=== PATIENT | male | born 1980 | race Caucasian/White ===

== ENCOUNTER 2019-12-27 16:41 | Inpatient (IN) ==
[2019-12-27] MEDS ORDERED: ONDANSETRON INJ 2 MG/ML 2 ML VIAL IV STA (17:32)
[2019-12-27] MEDS ORDERED: MoRPHine SULFATE 4 MG/ML 1 ML CARP\\VIAL IV PRN (17:32)
[2019-12-27 17:41] LABS: Basophils # (auto) 0.03 K/uL (0-0.2); Basophils % (auto) 0.3 %; Eosinophils # (auto) 0.01 K/uL (0-0.5); Eosinophils % (auto) 0.1 %; Hematocrit (blood only) 43.6 % (42-52); Hemoglobin 15.7 g/dL (14.0-18.0); Immature Granulocytes # (auto) 0.03 K/uL (0.00-0.02); Immature Granulocytes % (auto) 0.3 %; Lymphocytes # (auto) 1.74 K/uL (1.2-3.4); Mean Corpuscular Hemoglobin 31.5 pg (25-34); Mean Corpuscular Volume 87.4 fL (80-100); Mean Platelet Volume 11.1 fL (7.4-10.4); Monocytes # (auto) 0.98 K/uL (0.11-0.59); Monocytes % (auto) 9.6 %; Neutrophils # (auto) 7.44 K/uL (1.4-6.5); Neutrophils % (auto) 72.7 %; Platelet Count 268 K/uL (130-400); RDW Coefficient of Variation 13.3 % (11.5-14.5); RDW Standard Deviation 42.6 fL (36.4-46.3); Red Blood Count 4.99 M/uL (4.7-6.1); White Blood Count 10.23 K/uL (4.8-10.8)
[2019-12-27] MEDS ORDERED: SODIUM CHLORIDE 0.9% 1000ML 1,000 ML IV SCH (17:45)
[2019-12-27 17:56] LABS: Alanine Aminotransferase 106 U/L (12-78); Albumin Level 3.9 gm/dl (3.4-5.0); Aspartate Aminotransferase 35 U/L (15-37); BUN Creatinine Ratio 12.1 (10-20); Blood Urea Nitrogen 9 mg/dl (7-18); Calcium 8.9 mg/dl (8.5-10.1); Carbon Dioxide 26 mmol/L (21-32); Chloride 106 mmol/L (98-107); Creatinine Clr Calc Pharmacy 164.5 ml/min; Est GFR (African American) 135.8; Est GFR (Non-African American) 117.2; Glucose 85 mg/dl (70-99); Lipase 1116 U/L (73-393); Sodium 138 mmol/L (136-145)
[2019-12-27 18:01] LABS: Albumin Globulin Ratio 1.1 (0.9-2); Alkaline Phosphatase 72 U/L (45-117); Bilirubin,Total 0.5 mg/dl (0.2-1); Globulin 3.6 gm/dl (2.5-4.0); Total Protein 7.5 gm/dl (6.4-8.2); Troponin I < 0.015 ng/ml (0-0.045)
--- NOTE | 2019-12-27 18:56 | Emergency Department Note ---
Entered by Romel Zaragoza acting as a scribe for Jaime Casillas MD History of Present Illness General Chief complaint: Abdominal Pain Stated complaint: PANCREATITIS Time Seen by Provider: 12/27/19 17:21 Source: patient History of Present Illness Onset (ago): week(s) (several) Location: abdomen Pain Consistency: + other (worsening) Maximum Pain Intensity: 6 Current Pain Intensity: 6 Quality: + other (abdominal pain) Exacerbated By: + eating Associated symptoms: + nausea/vomiting (-vomiting); no fever/chills The patient is a 39 year old male, with past medical history of pancreatitis, who presents to the Emergency Room with complaints of worsening lower abdominal pain since being discharged from [facility] for pancreatitis on 12/10/19. He rates the pain as a 6/10, and the patient reports the pain is worsened with eating. The patient just started weaning his prednisone down to a smaller dose 3 days ago, this is when his pain really began to increase. He states that he will be completely off prednisone in two days. The patient reports nausea, but he denies vomiting. The patient denies drinking or smoking, but he notes he vapes. He states that he was told that he grew out of his asthma. The patient denies a fever/chills. He states the pain was at its worst last night as he states he could not sleep or lay on his sides due to the pain. The patient reports that he did not eat or drink anything today. He states the drive to [facility] made the pain worse. The patient reports that his lipase level was at 249 when last checked at his PCPs office two weeks ago. The patient denies prior abdominal surgeries. The patient states he came to [facility] this time because of a bad experience with [facility] last time. Home Medications Home Medications Medication Instructions Recorded Confirmed Type prednisone 0 mg PO .DAILY/UD 12/27/19 12/27/19 History Allergies Allergy/AdvReac Type Severity Reaction Status Date / Time Penicillins Allergy Unknown Unverified 12/27/19 18:17 Past Med/Surg History Medical History Pancreatitis Family History Mother Hypertension Social History Preferred Language: Martiniquais Communication Ability: Effective Beliefs That Will Affect Care: None Current Living Situation: Other Current Living Situation Comment: FRIEND Other Information That Helps Us Care for You: No Feels Safe at Home: Yes Safety Concerns: Feels Safe At This Time Smoking Status: Current every day smoker Tobacco Type: e-cigarettes ; Hx Alcohol Use: Yes Alcohol Intake Frequency: Rarely Hx Substance Use: No Review of Systems See HPI for pertinent positives & negatives. and A total of 10 systems reviewed and were otherwise negative Physical Exam Vital Signs Vital Signs - 24 hr 12/27/19 17:00 12/27/19 17:34 12/27/19 17:40 Temperature 36.9 C Temperature Source Oral Pulse Rate 89 78 72 Pulse Rate [Apical] Pulse Rate from SpO2 Sensor 82 73 Respiratory Rate 18 23 21 Respiratory Effort / Characteristics Non-Labored Respiratory Depth Normal Blood Pressure 148/99 H Blood Pressure [Left Arm] Blood Pressure Mean 115 Blood Pressure Mean [Left Arm] Pulse Oximetry 99 96 95 Oxygen Delivery Method Room Air Room Air Room Air Sepsis Recent Fever Within 48 Hours No Sepsis Action Taken by Nursing No Action Required 12/27/19 17:50 12/27/19 18:00 12/27/19 18:10 Temperature Temperature Source Pulse Rate 75 69 70 Pulse Rate [Apical] Pulse Rate from SpO2 Sensor 74 69 69 Respiratory Rate 17 15 17 Respiratory Effort / Characteristics Respiratory Depth Blood Pressure Blood Pressure [Left Arm] Blood Pressure Mean Blood Pressure Mean [Left Arm] Pulse Oximetry 96 96 96 Oxygen Delivery Method Room Air Room Air Room Air Sepsis Recent Fever Within 48 Hours Sepsis Action Taken by Nursing 12/27/19 18:20 12/27/19 18:32 12/27/19 18:37 Temperature Temperature Source Pulse Rate 79 71 80 Pulse Rate [Apical] 86 Pulse Rate from SpO2 Sensor 77 69 81 Respiratory Rate 14 15 18 Respiratory Effort / Characteristics Respiratory Depth Blood Pressure 129/102 H Blood Pressure [Left Arm] 129/100 Blood Pressure Mean 107 Blood Pressure Mean [Left Arm] 109 Pulse Oximetry 99 98 98 Oxygen Delivery Method Room Air Room Air Room Air Sepsis Recent Fever Within 48 Hours Sepsis Action Taken by Nursing GENERAL: Patient is in no acute distress. HEENT: No acute trauma, normocephalic atraumatic, mucous membranes moist, no nasal congestion, no scleral icterus. NECK: No stridor, no adenopathy, no meningismus, trachea is midline. LUNGS: Scattered wheezes. No crackles. Equal breath sounds. No respiratory dis tress. HEART: Without murmurs gallops or rubs, regular rate and rhythm. ABDOMEN: Soft, moderately tender in the epigastric area, bowel sounds positive, no hernias, no peritonitis. EXTREMITIES: No cyanosis or edema, full range of motion of all the joints without pain or difficulty, no signs for acute trauma. NEUROLOGIC: Oriented x 3, no acute motor or sensory deficits, no focal weakness. SKIN: No rash, no jaundice, no diaphoresis. Course Course 1727: Past medical records reviewed. The patient was evaluated in room C3. A complete history and physical exam was performed. 1808: I reevaluated and updated the patient on his case. The patient is willing to stay in the hospital. 1818: I reviewed the patient's case with Gerda Sheehan. Dr. Jakub Castillo will evaluate the patient for further management. Consultations Consultation #1: I reviewed the patient's case with Gerda Sheehan. Dr. Mayur Castillo will evaluate the patient for further management. Time: 18:19 Administered Medications Lactated Ringer's (Lr) 1,000 mls @ 150 mls/hr IV .Q6H40M [facility] Stop: 01/26/20 19:33 Last Admin: 12/27/19 19:46 Dose: 150 mls/hr Documented by: [id number] Morphine Sulfate (Morphine Sulfate) 4 mg IV Q4H PRN PRN Reason: Pain Stop: 01/10/20 19:33 Last Admin: 12/27/19 19:53 Dose: 4 mg Documented by: [id number] Discontinued Medications Sodium Chloride (Nss 1000ml) 1,000 mls @ 999 mls/hr IV .Q1H1M [facility] Stop: 12/27/19 18:45 Last Infusion: 12/27/19 18:47 Dose: 0 mls/hr Documented by: [id number] Admin: 12/27/19 17:41 Dose: 999 mls/hr Documented by: [id number] Morphine Sulfate (Morphine Sulfate) 4 mg IV Q15M PRN PRN Reason: Pain Stop: 01/10/20 17:31 Last Admin: 12/27/19 17:41 Dose: 4 mg Documented by: [id number] Ondansetron HCl (Zofran) 4 mg IV NOW STA Stop: 12/27/19 17:33 Last Admin: 12/27/19 17:41 Dose: 4 mg Documented by: [id number] Medical Decision Making Differential Diagnosis Differential diagnoses include pancreatitis, dehydration, electrolyte imbalance, anemia, renal failure, myocardial infarction, angina, amongst others that were considered. Medical Records Attestation: I reviewed the patient's medical records. The patient was admitted to [facility] on 11/25/19-11/27/19 for pa ncreatitis. The patient was admitted again from 12/07-12/10 for pancreatitis. The patient completed an MRI of abdomen without contrast on 12/08/19. It showed pancreatitis but no evidence of pancreatic mass, gall stones, or biliary obstruction. There was a mention of possible pancreatic duct stricture. 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 Home Medications Current Medication List: was personally reviewed by me Laboratory Data Attestation: I reviewed the patient's lab results. Result diagrams: 12/27/19 17:23 12/27/19 17:23 Lab Results 12/27/19 12/27/19 Range/Units 17:23 17:23 WBC 10.23 (4.8-10.8) K/uL RBC 4.99 (4.7-6.1) M/uL Hgb 15.7 (14.0-18.0) g/dL Hct 43.6 (42-52) % MCV 87.4 (80-100) fL MCH 31.5 (25-34) pg MCHC 36.0 (32-36) g/dL RDW Std Deviation 42.6 (36.4-46.3) fL RDW Coeff of Brayan 13.3 (11.5-14.5) % Plt Count 268 (130-400) K/uL MPV 11.1 H (7.4-10.4) fL Immature Gran % (Auto) 0.3 % Neut % (Auto) 72.7 % Lymph % (Auto) 17.0 % Wilkinson % (Auto) 9.6 % Eos % (Auto) 0.1 % Baso % (Auto) 0.3 % Immature Gran # (Auto) 0.03 H (0.00-0.02) K/uL Neut # (Auto) 7.44 H (1.4-6.5) K/uL Lymph # (Auto) 1.74 (1.2-3.4) K/uL Wilkinson # (Auto) 0.98 H (0.11-0.59) K/uL Eos # (Auto) 0.01 (0-0.5) K/uL Baso # (Auto) 0.03 (0-0.2) K/uL Sodium 138 (136-145) mmol/L Potassium 4.0 (3.5-5.1) mmol/L Chloride 106 (98-107) mmol/L Carbon Dioxide 26 (21-32) mmol/L Anion Gap 6.0 (3-11) BUN 9 (7-18) mg/dl Creatinine 0.75 (0.6-1.4) mg/dl Est Cr Clr Drug Dosing 164.5 ml/min Est GFR ( Amer) 135.8 Est GFR (Non-Af Amer) 117.2 BUN/Creatinine Ratio 12.1 (10-20) Glucose 85 (70-99) mg/dl Calcium 8.9 (8.5-10.1) mg/dl Total Bilirubin 0.5 (0.2-1) mg/dl AST 35 (15-37) U/L ALT 106 H (12-78) U/L Alkaline Phosphatase 72 (45-117) U/L Troponin I < 0.015 (0-0.045) ng/ml Total Protein 7.5 (6.4-8.2) gm/dl Albumin 3.9 (3.4-5.0) gm/dl Globulin 3.6 (2.5-4.0) gm/dl Albumin/Globulin Ratio 1.1 (0.9-2) Lipase 1116 H (73-393) U/L ECG Data Attestation: I personally reviewed and interpreted this ECG as follows: Indication: + abdominal pain Rate (beats per minute): 66 Rhythm: + normal sinus ECG Intervals/blocks: + Normal QT-c (404) ECG ST segments: no ST elevation ECG Findings: no PVCs Blood Pressure Blood Pressure Findings: Elevated blood pressure Blood Pressure Disposition: further management by hospitalist [facility] Narrative There is no leukocytosis or concerning anemia. No significant electrolyte abnormality or kidney failure. No worrisome liver enzyme elevation. Lipase was high at over one thousand, consistent with pancreatitis. EKG shows a normal sinus rhythm, no acute ischemia. Cardiac enzyme testing x1 is not consistent with acute cardiac injury. The patient received IV morphine for pain, IV Zofran for nausea, he was given IV saline. The patient is tender in the epigastrium and appears to have pancreatitis by our laboratory testing. He has had similar issues in the very recent past. He has been diagnosed with autoimmune pancreatitis. Given the elevation to the lipase, given his worsening symptoms, a hospital stay was felt warranted. I did speak to the patient about his findings, I spoke with case management. The on-call hospitalist was consulted. Continuous Cardiac Monitoring: An order was placed for continuous cardiac monitoring. The monitor shows a rate of 66 with normal sinus rhythm. Impression & Plan Acute pancreatitis, Abdominal pain, acute, epigastric, Acute dehydration Discharge Plan Visit Data *Final* Discharge Date/Time: 12/27/19 19:17 Chief Complaint: Abdominal Pain Stated Complaint: PANCREATITIS ED Provider: Jaime Casillas Discharge Problem: Acute pancreatitis, Abdominal pain, acute, epigastric, Acute dehydration Patient Disposition: Admitted As Inpatient Discharge Instructions Interventions: ED Discharge Assessment Last Done: 12/27/19 19:17 Discharge Problem: Acute pancreatitis Qualifiers: Pancreatitis type: unspecified pancreatitis type Acute pancreatitis complication: unspecified Qualified Code(s): K85.90 - Acute pancreatitis without necrosis or infection, unspecified The rickyibcici's documentation has been prepared under my direction and personally reviewed by me in its entirety. I confirm that the note above accurately reflects all work, treatment, procedures, and medical decision making performed by me.
--- NOTE | 2019-12-27 19:29 | History & Physical Report ---
Date of Service December 27, 2019 Assessment & Plan (1) Acute pancreatitis: -Admit to [facility] -Patient presenting from home with reports of abdominal pain, 2 recent admissions to [facility] for pancreatitis (11/25 - 11/27 and 12/06 - 12/10) -No history of heavy alcohol use, prior work-up negative for ch oledocholithiasis, triglycerides WNL; was felt to be autoimmune pancreatitis and patient was started on steroids with improvement in symptoms however ROBBI and IgG4 subclasses all WNL and patient was instructed to start tapering steroids on 12/23 -EGD and EUS on 12/09 showed esophageal polyp (pathology showing benign squamous mucosa) and signs of fatty liver -In the ED, lipase found to be 1116 (249 on 12/17) -Check RUQ ultrasound -Mild ALT elevation however other LFTs WNL -Continue supportive care with IVF, pain and nausea control -Hold steroids for now -Clear liquid diet -GI consult (patient requesting [facility] for second opinion) (2) DVT prophylaxis: -SCDs History of Present Illness Chief Complaint: Abdominal pain Primary Care Provider: Kiko Celaya MD 39-year-old male who presents the ED for evaluation of abdominal pain. Patient has had 2 admissions to [facility] for pancreatitis. First admission 11/25 through 11/27 and second admission 12/06 through 12/10. Initially pancreatitis was felt to be s econdary to possible passed gallstone. 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 Patient was started on steroids during his second admission and had significant improvement in his symptoms. He underwent EGD and EUS on 12/09. He was found to have esophageal polyp and signs of fatty liver. He followed up with GI on 12/23 as an outpatient. ROBBI and IgG4 subclasses were all found to be within normal limits and therefore patient was instructed to taper his steroids. Patient reports that about 2 days ago his pain has started to worsen. He has been tolerating clear liquids however when he advances his diet, pain is worsened. He has had some nausea but denies any vomiting. He has had a few episodes of diarrhea. No black or pink rectum or dark tarry stools. He denies chest pain or shortness of breath. No lightheadedness, dizziness, diaphoresis, syncopal events. No fevers or chills. He denies any urinary symptoms. In the ED, lipase is found to be 1116. Patient was given IVF, IV morphine, and IV Zofran. Allergies Allergy/AdvReac Type Severity Reaction Status Date / Time Penicillins Allergy Unknown Unverified 12/27/19 18:17 Home Medications Home Medications Medication Instructions Recorded Confirmed Type prednisone 0 mg PO .DAILY/UD 12/27/19 12/27/19 History Past Med/Surg History Medical History Pancreatitis Family History Mother Hypertension Social History Preferred Language: Vietnamese Communication Ability: Effective [employer] Required: No Beliefs That Will Affect Care: None Current Living Situation: Significant Other Current Living Situation Comment: FRIEND Other Information That Helps Us Care for You: No Feels Safe at Home: Yes Safety Concerns: Feels Safe At This Time Smoking Status: Former smoker Tobacco Type: e-cigarettes ; Do You Dip or Chew Tobacco: No ; Second Hand Exposure: No ; Hx Alcohol Use: Yes Alcohol Intake Frequency: Rarely Hx Substance Use: Yes substance use type: prescription drug Last Used Substance: Days (ago) Last Used Substance Other:: 12/26/2019 Review of Systems Review of Systems: ROS per HPI, all other systems reviewed and negative Physical Exam Physical Exam: Please refer to Dr. Carver's addendum for physical exam. Results & Data Vital Signs (Past 12 Hours) Vital Signs Temp Pulse Pulse Resp BP BP Pulse Ox 12/27/19 18:50 68 14 98 12/27/19 18:40 76 26 H 98 12/27/19 18:37 80 86 18 129/102 H 129/100 98 12/27/19 18:32 71 15 98 12/27/19 18:20 79 14 99 12/27/19 18:10 70 17 96 12/27/19 18:00 69 15 96 12/27/19 17:50 75 17 96 12/27/19 17:40 72 21 95 12/27/19 17:34 78 23 96 12/27/19 17:00 36.9 C 89 18 148/99 H 99 Laboratory Results Short CBC 12/27/19 Range/Units 17:23 WBC 10.23 (4.8-10.8) K/uL Hgb 15.7 (14.0-18.0) g/dL Hct 43.6 (42-52) % Plt Count 268 (130-400) K/uL BMP 12/27/19 17:23 Sodium 138 Potassium 4.0 Chloride 106 Carbon Dioxide 26 BUN 9 Creatinine 0.75 Glucose 85 Calcium 8.9 Cardiac Enzymes 12/27/19 Range/Units 17:23 Troponin I < 0.015 (0-0.045) ng/ml Liver Function 12/27/19 Range/Units 17:23 Total Bilirubin 0.5 (0.2-1) mg/dl AST 35 (15-37) U/L ALT 106 H (12-78) U/L Alkaline Phosphatase 72 (45-117) U/L Albumin 3.9 (3.4-5.0) gm/dl Code Status & VTE Plan VTE Prophylaxis Plan VTE Prophylaxis will be ordered: Yes Supervising Physician Co-Signing Physician Notes I performed a history and physical examination of the patient on 12/27/2019. I have discussed the patient's management with the advanced practitioner. Please refer to the [employer]'s note for the documented findings and plan of care. This is a 39-year-old male who has presented to the ER with ongoing epigastric pain. He has been admitted recently to the [facility] with acute pancreatitis with cause unknown so far. Right upper quadrant ultrasound was unremarkable and he drinks alcohol only occasionally. His triglyceride levels were also within normal limits. He was thought to have autoimmune pancreatitis and was discharged on prednisone taper. He is down to 10 mg which she was instructed to take for 2 more days. He came to the ER because his pain, mainly located in the epigastrium, never went away and is worse now. He denied any diarrhea or fever. Review of systems was otherwise negative. On exam: General: Alert and oriented x 3. NAD HENT: Normocephalic, atraumatic, pupils round and equally reactive to light, oral mucosa: moist Neck: Supple, no lymph nodes palpated, no thyromegaly CVS: Normal S1, S2. No murmur, rub or gallop. PMI non displaced. Peripheral pulses normal. Resp: Normal percussion. Normal breath sounds bilaterally. No wheezing or rales heard Abdomen: Soft, tender in the epigastrium, no hepatosplenomegaly. Bowel sounds positive Extremities: No pitting edema Neuro: Power 5/5 throughout, grossly normal sensations, DTR's normal Psychiatry: Normal mood, normal thought process He is noted to have elevated lipase and slightly elevated liver enzymes. He appears to have another or ongoing episode of pancreatitis. We will repeat a right upper quadrant ultrasound and consult gastroenterology for further recommendations. He is tolerating clear liquids and we will continue them. Provide IV fluids. (1) Acute pancreatitis Acute pancreatitis complication: unspecified Pancreatitis type: unspecified pancreatitis type Qualified Code(s): K85.90 - Acute pancreatitis without necrosis or infection, unspecified
[2019-12-27] MEDS ORDERED: ACETAMINOPHEN 325 MG TAB PO PRN (19:34)
[2019-12-27] MEDS: LACTATED RINGER'S 1,000 ML IV SCH (19:46)
[2019-12-27] MEDS: MoRPHine SULFATE 4 MG/ML 1 ML CARP\\VIAL IV PRN (19:53)
--- NOTE | 2019-12-27 21:28 | Ultrasound Report ---
US liver HISTORY: 39 years-old Male pancreatitis acute right upper quadrant abdominal pain COMPARISON: None TECHNIQUE: Multiple real-time sonographic images of the abdominal right upper quadrant were obtained assessing grayscale appearance and color flow FINDINGS: Pancreas is mostly obscured by bowel gas. The visualized portions of the pancreas appear unremarkable . No pancreatic ductal dilation. Mildly increased echogenicity of the liver. No focal hepatic mass or intrahepatic biliary ductal dilation. Trace bladder sludge. No cholelithiasis, bladder wall thickeni ng or pericholecystic fluid. Sonographic Huggins sign reported as negative. Common bile duct is normal , 3 mm. Imaged right kidney is unremarkable without hydronephrosis. IMPRESSION: 1. Pancreas is mostly obscured by bowel gas. The visualized portions appear unremarkable. 2. Trace, bladder sludge without cholelithiasis or sonographic evidence of acute cholecystitis. 3. No biliary ductal dilation. 4. Mildly increased echogenicity of the liver may reflect hepatic steatosis. ACT 112: Negative or not required by law. The above report was generated using voice recognition software. It may contain grammatical, syntax o r spelling errors. Electronically signed by: Chung Morales M.D. 12/27/2019 9:27 PM
[2019-12-28] MEDS: MoRPHine SULFATE 4 MG/ML 1 ML CARP\\VIAL IV PRN ×5 (00:06→20:43)
[2019-12-28] MEDS: LACTATED RINGER'S 1,000 ML IV SCH ×4 (01:52→21:42)
[2019-12-28 06:30] LABS: Hematocrit (blood only) 40.5 % (42-52); Hemoglobin 13.8 g/dL (14.0-18.0); Mean Corpuscular Hemoglobin 30.8 pg (25-34); Mean Corpuscular Hgb Conc 34.1 g/dL (32-36); Mean Corpuscular Volume 90.4 fL (80-100); Mean Platelet Volume 11.3 fL (7.4-10.4); Platelet Count 208 K/uL (130-400); RDW Coefficient of Variation 13.5 % (11.5-14.5); RDW Standard Deviation 44.6 fL (36.4-46.3); Red Blood Count 4.48 M/uL (4.7-6.1); White Blood Count 9.46 K/uL (4.8-10.8)
[2019-12-28 07:12] LABS: Albumin Level 3.1 gm/dl (3.4-5.0); BUN Creatinine Ratio 10.6 (10-20); Bilirubin,Total 0.6 mg/dl (0.2-1); Calcium 8.6 mg/dl (8.5-10.1); Creatinine Clr Calc Pharmacy 162.4 ml/min; Est GFR (African American) 135.1; Est GFR (Non-African American) 116.6; Potassium 3.8 mmol/L (3.5-5.1); Total Protein 6.1 gm/dl (6.4-8.2)
[2019-12-28 09:07] LABS: Chol HDL Ratio 4; Cholesterol 157 mg/dl (0-200); HDL Cholesterol 44 mg/dl; LDL Cholesterol Calculated 92 mg/dl; Triglycerides 103 mg/dl (0-150); VLDL Cholesterol 21 mg/dl
--- NOTE | 2019-12-28 10:22 | Gastrointestinal Consultation ---
Date of Consultation December 28, 2019 Assessment & Plan (1) Pancreatitis: Agree with Dr. Bojorquez of [facility]. Would ensure completion of the steroid taper. I discussed with patient that at present, I do not have much to add to the overall plan of care, but would recommend keeping patient NPO until MRCP can be performed due to worsening symptoms. If no further findings from MRCP, would advise outpatient tertiary work-up as patient has already undergone an EUS locally. Continue to follow LFTs. Supportive care per primary team. Present on Admission?: Yes Supervising Physician Co-Signing Physician Notes Agree with REINALDO Martinez as above Abd: Soft, tender mid-epigastric area, ND, +BS Check MRCP now Consider Surgery consult, as the most common cause of recurrent pancreatitis is gallstones/sludge Continue supportive care. History of Present Illness Reason for Consultation: 2nd opinion pancreatitis Attending Physician: Sandip Montaño MD History of Present Illness Patient is a 39 yo male admitted to [facility] after multiple admissions to [facility] for pancreatitis. He has no history of pancreatitis prior to November 2019. He reports he was admitted to [facility] and his work-up was unremarkable. He denies alcohol use, triglycerides were within normal limits, & gallbladder work-up was unremarkable at that time per review of Epic records. He reports that he was discharged, but due to persistent symptoms, he returned. He was evaluated by [facility] at some point during these hospitalizations. He underwent an EGD/EUS. 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 While he had a negative ROBBI & IgG4 subclasses, he was placed on a steroid taper and advised to have an MRCP in 3 months. He notes this improved his symptoms at first. He notes that when he began advancing his diet, his symptoms worsened. He returned to [facility] for another opinion. He reports epigastric pain at present. He is on a clear liquid diet currently. AST is 25. ALT 79. US imaging shows gallbladder sludge but no evidence of choledocholithiasis or cholecystitis. Pancreas could not be visualized. He has minimal elevation of his lipase at 1116. Allergies Allergy/AdvReac Type Severity Reaction Status Date / Time Penicillins Allergy Unknown Unverified 12/27/19 18:17 Home Medications Home Medications Medication Instructions Recorded Confirmed Type prednisone 0 mg PO .DAILY/UD 12/27/19 12/27/19 History Patient History Medical History Pancreatitis Family History Mother Hypertension Social History Preferred Language: Lao Communication Ability: Effective Aviation Survival Technician Required: No Beliefs That Will Affect Care: None Current Living Situation: Significant Other Current Living Situation Comment: FRIEND Other Information That Helps Us Care for You: No Feels Safe at Home: Yes Safety Concerns: Feels Safe At This Time Smoking Status: Former smoker Tobacco Type: e-cigarettes ; Do You Dip or Chew Tobacco: No ; Second Hand Exposure: No ; Hx Alcohol Use: Yes Alcohol Intake Frequency: Rarely Hx Substance Use: Yes substance use type: prescription drug Last Used Substance: Days (ago) Last Used Substance Other:: 12/26/2019 Review of Systems Constitutional: no fever and no chills Eyes: no acute issues Ear, Nose, Mouth, Throat: no acute issues Respiratory: no cough and no dyspnea Cardiovascular: no chest pain Gastrointestinal: + abdominal pain (epigastric); no bloating, no heartburn, no nausea, no vomiting and no change in bowel habits Musculoskeletal: no acute complaints Integumentary: no rash Neurologic: no dizziness Psychiatric: no acute issues Hematologic / Lymphatic: no easy bleeding Physical Exam Constitutional: WD/WN, vitals as above Eyes: PERRL, conjunctivae normal, anicteric sclerae ENMT: external ear and nose normal, oropharynx normal Neck: normal visual inspection Respiratory: normal respiratory effort, lungs clear to auscultation Cardiovascular: RRR, no murmur, no edema Gastrointestinal (Abdomen): normal bowel sounds, soft, nontender, no hepatosplenomegaly Skin: no rashes, warm and dry Psychiatric: A+Ox3, euthymic affect Results & Data ([facility]) Vital Signs (Past 12 Hours) Vital Signs Temp Pulse Resp BP Pulse Ox 12/28/19 07:20 36.6 C 76 16 133/92 98 12/28/19 00:01 36.7 C 65 15 142/90 H 96 PG Care Time/CCT Total # of Minutes Spent Total Time Spent with Patient: Total time spent is greater than 50% in coordination of care (as documented) at patient's floor/unit and/or counseling patient: Coding Level of Care Code 83997 Inpt Consult Level 4 Diagnoses Pancreatitis K85.00 Acute pancreatitis complication: no infection or necrosis Chronicity: acute Pancreatitis type: idiopathic (1) Pancreatitis Acute pancreatitis complication: no infection or necrosis Chronicity: acute Pancreatitis type: idiopathic Qualified Code(s): K85.00 - Idiopathic acute pancreatitis without necrosis or infection
--- NOTE | 2019-12-28 11:17 | Electrocardiogram Report ---
Test Reason : Blood Pressure : / mmHG Vent. Rate : 066 BPM Atrial Rate : 066 BPM P-R Int : 148 ms QRS Dur : 096 ms QT Int : 386 ms P-R-T Axes : 034 001 011 degrees QTc Int : 404 ms Normal sinus rhythm Normal ECG No previous ECGs available Confirmed by Mil Padron ([id number]) on 12/28/2019 11:16:39 AM Referred By: REFERRED SELF Confirmed By:Mil Padron
--- NOTE | 2019-12-28 14:35 | Hospitalist Progress Note ---
Date of Service December 28, 2019 Assessment & Plan (1) Acute pancreatitis: Note from the admitting physician: -Patient presenting from home with reports of abdominal pain, 2 recent admissions to [facility] for pancreatitis (11/25 - 11/27 and 12/06 - 12/10) -No history of heavy alcohol use, prior work-up negative for choledocholithiasis, triglycerides WNL; was felt to be autoimmune pancreatitis and patient was started on steroids with improvement in symptoms however ROBBI and IgG4 subclasses all WNL and patient was instructed to start tapering steroids on 12/23 -EGD and EUS on 12/09 showed esophageal polyp (pathology showing benign squamous mucosa) and signs of fatty liver -In the ED, lipase found to be 1116 (249 on 12/17) -Check RUQ ultrasound -Mild ALT elevation however other LFTs WNL -Continue supportive care with IVF, pain and nausea control -Hold steroids for now -Clear liquid diet -GI consult (patient requesting [facility] for second opinion) 12/28/2019 Symptomatically a little better and continues to have abdominal pain Appreciate GI input and recommendation Lipid profile and triglyceride remain unremarkable Has had outpatient work-up including EUS Check MRCP We will start clear liquid and advance diet as tolerated from tomorrow if symptomatically better Lipase is coming down (2) DVT prophylaxis: -SCDs -Increase ambulation Discussed with the patient in detail Admission and Anticipated Discharge Date Admission Date: December 27, 2019 Subjective 12/28/2019 The patient was seen and examined in medical floor He still complains of pain in the epigastrium that goes back His nausea and vomiting are better Remains n.p.o. Review of Systems Review of Systems: All systems reviewed and are unremarkable except as noted below Gastrointestinal: + abdominal pain, + bloating, + nausea and + vomiting Physical Exam Physical Exam: Lying in bed very anxious with minimal distress due to abdominal pain Constitutional: well developed, well nourished, + acute distress (Minimal abdominal pain) and + obese Eyes: PERRL, conjunctivae normal, anicteric sclerae ENMT: external ear and nose normal, oropharynx normal Neck: normal visual inspection Respiratory: normal respiratory effort, lungs clear to auscultation Cardiovascular: RRR, no murmur, no edema Gastrointestinal (Abdomen): Inspection/Auscultation: abdomen normal to inspection and normal bowel sounds Percussion/Palpation: + abdomen tender (Mildly tender in the epigastrium) and abdomen soft; no guarding and abdomen not rigid Musculoskeletal: No acute arthritis involving any joint Skin: no rashes, warm and dry Psychiatric: A+Ox3, euthymic affect Results & Data ([facility]) Vital Signs (Past 12 Hours) Vital Signs Temp Pulse Resp BP Pulse Ox 12/28/19 07:20 36.6 C 76 16 133/92 98 Laboratory Results Short CBC 12/27/19 12/28/19 Range/Units 17:23 06:01 WBC 10.23 9.46 (4.8-10.8) K/uL Hgb 15.7 13.8 L (14.0-18.0) g/dL Hct 43.6 40.5 L (42-52) % Plt Count 268 208 (130-400) K/uL BMP 12/27/19 12/28/19 17:23 06:01 Sodium 138 140 Potassium 4.0 3.8 Chloride 106 107 Carbon Dioxide 26 29 BUN 9 8 Creatinine 0.75 0.76 Glucose 85 93 Calcium 8.9 8.6 Cardiac Enzymes 12/27/19 Range/Units 17:23 Troponin I < 0.015 (0-0.045) ng/ml Liver Function 12/27/19 12/28/19 Range/Units 17:23 06:01 Total Bilirubin 0.5 0.6 (0.2-1) mg/dl AST 35 25 (15-37) U/L ALT 106 H 79 H (12-78) U/L Alkaline Phosphatase 72 57 (45-117) U/L Albumin 3.9 3.1 L (3.4-5.0) gm/dl Medications Administered Current Inpatient Medications Acetaminophen (Tylenol) 650 mg PO Q4H PRN PRN Reason: pain/fever Stop: 01/26/20 19:33 Lactated Ringer's (Lr) 1,000 mls @ 150 mls/hr IV .Q6H40M AMARI Stop: 01/26/20 19:33 Last Admin: 12/28/19 08:54 Dose: 150 mls/hr Documented by: Morphine Sulfate (Morphine Sulfate) 4 mg IV Q4H PRN PRN Reason: Pain Stop: 01/10/20 19:33 Last Admin: 12/28/19 11:58 Dose: 4 mg Documented by: (1) Acute pancreatitis Acute pancreatitis complication: unspecified Pancreatitis type: unspecified pancreatitis type Qualified Code(s): K85.90 - Acute pancreatitis without necrosis or infection, unspecified
[2019-12-29] MEDS: MoRPHine SULFATE 4 MG/ML 1 ML CARP\\VIAL IV PRN ×6 (00:55→22:30)
[2019-12-29] MEDS ORDERED: ONDANSETRON INJ 2 MG/ML 2 ML VIAL IV PRN (01:03)
[2019-12-29] MEDS: LACTATED RINGER'S 1,000 ML IV SCH ×4 (04:06→23:33)
[2019-12-29 06:46] LABS: Mean Corpuscular Hgb Conc 33.6 g/dL (32-36); Mean Platelet Volume 11.2 fL (7.4-10.4); Platelet Count 197 K/uL (130-400)
--- NOTE | 2019-12-29 06:58 | Magnetic Resonance Report ---
MR MRCP CLINICAL HISTORY: Idiopathic Pancreatitis COMPARISON STUDY: Biliary ultrasound dated 12/27/2019 FINDINGS: A breath-hold MRCP was performed. MIP images were acquired. No gallstones are visualized. There is no evidence of intra or extrahepatic biliary ductal dilatation. There is no pancreatic ductal dilatation. There is equivocal minimal peripancreatic edema. There is an equivocal pancreatic divisum IMPRESSION: 1. No evidence of ductal dilatation 2. No calculi identified 3. Equivocal pancreatic divisum ACT 112: Negative or not required by law. Electronically signed by: Chino Vaca M.D. 12/29/2019 6:57 AM
[2019-12-29 07:16] LABS: Albumin Level 3.1 gm/dl (3.4-5.0); BUN Creatinine Ratio 7.2 (10-20); Calcium 8.6 mg/dl (8.5-10.1); Creatinine Clr Calc Pharmacy 162.4 ml/min; Est GFR (African American) 135.1; Est GFR (Non-African American) 116.6; Magnesium 1.8 mg/dl (1.8-2.4); Potassium 3.8 mmol/L (3.5-5.1)
[2019-12-29 07:17] LABS: Hematocrit (blood only) 41.7 % (42-52); Mean Corpuscular Hemoglobin 30.5 pg (25-34); Mean Corpuscular Volume 90.8 fL (80-100); RDW Coefficient of Variation 13.6 % (11.5-14.5); RDW Standard Deviation 45.2 fL (36.4-46.3); Red Blood Count 4.59 M/uL (4.7-6.1); White Blood Count 7.43 K/uL (4.8-10.8)
[2019-12-29 07:19] LABS: Basophils # (auto) 0.02 K/uL (0-0.2); Basophils % (auto) 0.3 %; Bilirubin,Total 0.6 mg/dl (0.2-1); Eosinophils # (auto) 0.21 K/uL (0-0.5); Eosinophils % (auto) 2.8 %; Globulin 3.3 gm/dl (2.5-4.0); Immature Granulocytes # (auto) 0.02 K/uL (0.00-0.02); Immature Granulocytes % (auto) 0.3 %; Lymphocytes # (auto) 2.17 K/uL (1.2-3.4); Lymphocytes % (auto) 29.2 %; Monocytes # (auto) 0.71 K/uL (0.11-0.59); Monocytes % (auto) 9.6 %; Neutrophils % (auto) 57.8 %; Phosphorus 3.3 mg/dl (2.5-4.9); Total Protein 6.4 gm/dl (6.4-8.2)
--- NOTE | 2019-12-29 09:47 | Surgery Consultation ---
Date of Consultation December 29, 2019 Assessment & Plan (1) Pancreatitis: This is a 39y M who presents to the [facility] ED on 12/26 with abdominal pain. His pain seems to be pretty persistent since November and this is his 3rd readmission for similar symptoms for pancreatitis. Appreciate GI and medicine input. Lipase is downtrending was 1116 on admission, 575 yesterday. Today tbili: 0.6. AST: 23, ALT: 79, Alkp: 58, WBC 7.4. Imaging reveals + sludge in the gallbladder and pancreatic divisum. I will talk to Dr. Hinton, for now we will tentatively plan to schedule the patient for the OR tomorrow for laparoscopic cholecystectomy with possible cholangiogram. Please keep patient NPO with IVF. discussed procedure r and c with pt and agrees to proceed in am all questions answered History of Present Illness Attending Physician: Jann Ruiz MD History of Present Illness This is a 39y M with no significant medical history who presents to the [facility] on 12/26 with complaints of abdominal pain. Patient states his abdominal pain started in November, he went to the ED at [facility] and work up revealed pancreatitis. He was treated conservatively with bowel rest and pain meds, and discharged to home 2 days later. Patient reports that the pain again presented 4-5 days later and he went to the ED a second time for pancreatitis. He underwent a US and CT scan which he believes were normal. An EUS/EGD was performed and there was concern for questionable autoimmune pancreatitis and the patient was started prednisone and pain medications. He was discharged to home, but over the next two weeks patient reports his abdominal pain remained persistent. He says his pain is mostly located in the upper abdomen and right side, but has on occasion felt some discomfort in the lower abdomen. The pain does radiate to his back sometimes. He says he was following a low fat diet and denies any alcohol usage. He came to the ED on 12/26/19 an labs revealed a lipase of 1116, and US showed no stones, trace sludge and no ductal dilation. He was admitted under medicine and was kept NPO with IVF, GI, and surgery consulted. Allergies Allergy/AdvReac Type Severity Reaction Status Date / Time Penicillins Allergy Unknown Unverified 12/27/19 18:17 Home Medications Home Medications Medication Instructions Recorded Confirmed Type prednisone 0 mg PO .DAILY/UD 12/27/19 12/27/19 History Patient History Medical History Pancreatitis Family History Mother Hypertension Social History Preferred Language: Kuwaiti Communication Ability: Effective Automotive Service Professional Required: No Beliefs That Will Affect Care: None Current Living Situation: Significant Other Current Living Situation Comment: FRIEND Other Information That Helps Us Care for You: No Feels Safe at Home: Yes Safety Concerns: Feels Safe At This Time Smoking Status: Former smoker Tobacco Type: e-cigarettes ; Do You Dip or Chew Tobacco: No ; Second Hand Exposure: No ; Hx Alcohol Use: Yes Alcohol Intake Frequency: Rarely Hx Substance Use: Yes substance use type: prescription drug Last Used Substance: Days (ago) Last Used Substance Other:: 12/26/2019 Review of Systems Constitutional: no fever and no chills Respiratory: no shortness of breath Cardiovascular: no chest pain Gastrointestinal: + nausea and + diarrhea/loose stools (x2 recently); no vomiting Genitourinary: + problem reported (in november reports dark colored urine) Physical Exam Physical Exam: awake/alert Constitutional: well developed, well nourished and cooperative; no acute distress Respiratory: normal respiratory effort Gastrointestinal (Abdomen): Inspection/Auscultation: + abdomen distended (mild) Percussion/Palpation: + abdomen tender (mostly ttp in epigastric region) and abdomen soft Results & Data Vital Signs (Past 12 Hours) Vital Signs Temp Pulse Resp BP Pulse Ox 12/29/19 07:41 36.7 C 65 18 128/83 97 12/28/19 23:54 36.7 C 76 15 128/88 94 US liver HISTORY: 39 years-old Male pancreatitis acute right upper quadrant abdominal pain COMPARISON: None TECHNIQUE: Multiple real-time sonographic images of the abdominal right upper quadrant were obtained assessing grayscale appearance and color flow FINDINGS: Pancreas is mostly obscured by bowel gas. The visualized portions of the pancreas appear unremarkable. No pancreatic ductal dilation. Mildly increased echogenicity of the liver. No focal hepatic mass or intrahepatic biliary ductal dilation. Trace bladder sludge. No cholelithiasis, bladder wall thickening or pericholecystic fluid. Sonographic Huggins sign reported as negative. Common bile duct is normal, 3 mm. Imaged right kidney is unremarkable without hydronephrosis. IMPRESSION: 1. Pancreas is mostly obscured by bowel gas. The visualized portions appear unremarkable. 2. Trace, bladder sludge without cholelithiasis or sonographic evidence of acute cholecystitis. 3. No biliary ductal dilation. 4. Mildly increased echogenicity of the liver may reflect hepatic steatosis. ACT 112: Negative or not required by law. The above report was generated using voice recognition software. It may contain grammatical, syntax or spelling errors. Electronically signed by: Chung Morales M.D. 12/27/2019 9:27 PM MR MRCP CLINICAL HISTORY: Idiopathic Pancreatitis COMPARISON STUDY: Biliary ultrasound dated 12/27/2019 FINDINGS: A breath-hold MRCP was performed. MIP images were acquired. No gallstones are visualized. There is no evidence of intra or extrahepatic biliary ductal dilatation. There is no pancreatic ductal dilatation. There is equivocal minimal peripancreatic edema. There is an equivocal pancreatic divisum IMPRESSION: 1. No evidence of ductal dilatation 2. No calculi identified 3. Equivocal pancreatic divisum ACT 112: Negative or not required by law. Electronically signed by: Chino Vaca M.D. 12/29/2019 6:57 AM PG Care Time/CCT Total # of Minutes Spent Total Time Spent with Patient: Total time spent is greater than 50% in coordination of care (as documented) at patient's floor/unit and/or counseling patient: Coding Level of Care Code 84449 Inpt Consult Level 3 Diagnoses Pancreatitis K85.00 Acute pancreatitis complication: no infection or necrosis Chronicity: acute Pancreatitis type: idiopathic (1) Pancreatitis Acute pancreatitis complication: no infection or necrosis Chronicity: acute Pancreatitis type: idiopathic Qualified Code(s): K85.00 - Idiopathic acute pancreatitis without necrosis or infection
--- NOTE | 2019-12-29 10:31 | Gastroenterology Progress Note ---
Date of Service December 29, 2019 Assessment & Plan (1) Pancreatitis: -Continue supportive care -MRCP negative with the exception of pancreatic divisum. Given overall appearance of pancreas on EUS & consider for autoimmune pancreatitis, would consider outpatient evaluation with a hepatobiliary specialist at a tertiary center. -Appreciate surgery input--unclear if sludge is playing a role in the patient's returning symptoms after dietary advancement. Thank you for allowing us to participate in the care of this patient. If you should have any further questions or concerns, do not hesitate to contact us at [email or web address] [phone] or [phone]. Present on Admission?: Yes Admission and Anticipated Discharge Date Admission Date: December 27, 2019 Supervising Physician Co-Signing Physician Notes Agree with REINALDO Martinez as above Abd: Soft, Tender, ND, +BS Continue supportive care Cholecystectomy in AM with Dr. Hinton Subjective Patient is a 39 yo male hospitalized with pancreatitis and epigastric abdominal pain. His MRCP from yesterday indicated pancreatic divisum without acute abnormalities otherwise. He reports persistent epigastric pain. His lipase has trended down. He has no new symptoms. He has remained only consuming liquids. Labs from this AM are unremarkable. General surgery has been consulted due to US findings of gallbladder sludge. Review of Systems Constitutional: no fever and no chills Respiratory: no cough and no dyspnea Cardiovascular: no chest pain Gastrointestinal: + abdominal pain; no heartburn and no change in bowel habits Musculoskeletal: no joint pain Psychiatric: no acute issues Physical Exam Constitutional: WD/WN, vitals as above Respiratory: normal respiratory effort, lungs clear to auscultation Cardiovascular: RRR, no murmur, no edema Gastrointestinal (Abdomen): normal bowel sounds, soft, nontender, no hepatosplenomegaly Musculoskeletal: no cyanosis or clubbing, extremities motor strength 5/5 Skin: no rashes, warm and dry Psychiatric: A+Ox3, euthymic affect Results & Data ([facility]) Vital Signs (Past 12 Hours) Vital Signs Temp Pulse Resp BP Pulse Ox 12/29/19 07:41 36.7 C 65 18 128/83 97 12/28/19 23:54 36.7 C 76 15 128/88 94 PG Care Time/CCT Total # of Minutes Spent Total Time Spent with Patient: Total time spent is greater than 50% in coordination of care (as documented) at patient's floor/unit and/or counseling patient: Coding Level of Care Code 31048 Subseq Hosp Care Lvl 2 Diagnoses Pancreatitis K85.00 Acute pancreatitis complication: no infection or necrosis Chronicity: acute Pancreatitis type: idiopathic (1) Pancreatitis Acute pancreatitis complication: no infection or necrosis Chronicity: acute Pancreatitis type: idiopathic Qualified Code(s): K85.00 - Idiopathic acute pancreatitis without necrosis or infection
--- NOTE | 2019-12-29 10:48 | Hospitalist Progress Note ---
Date of Service December 29, 2019 Assessment & Plan (1) Acute pancreatitis: -Patient presenting from home with reports of abdominal pain, 2 recent admissions to [facility] for pancreatitis (11/25 - 11/27 and 12/06 - 12/10) -No history of heavy alcohol use, prior work-up negative for choledocholithiasis , triglycerides WNL; was felt to be autoimmune pancreatitis and patient was started on steroids with improvement in symptoms however ROBBI and IgG4 subclasses all WNL and patient was instructed to start tapering steroids on 12/23 -EGD and EUS on 12/09 showed esophageal polyp (pathology showing benign squamous mucosa) and signs of fatty liver -In the ED, lipase found to be 1116 (249 on 12/17) -RUQ ultrasound (December 27) - trace, biliary sludge without cholelithiasis or sonographic evidence of acute cholecystitis. No biliary ductal dilation. Mildly increased echogenicity of the liver may reflect hepatic steatosis. -Mild ALT elevation however other LFTs WNL -Continue supportive care with IVF, pain and nausea control -Hold steroids for now -Clear liquid diet -GI consult (patient requesting [facility] for second opinion) -if MRCP negative, recommend to consult general surgery given recurrent pancreatitis, and biliary sludge on ultrasound. Otherwise would recommend furter evaluation at tertiary care center -Lipid profile and triglyceride remain unremarkable -Has had outpatient work-up including EUS -Check MRCP (12/29/2019) -no evidence of ductal dilatation, no calculi identified, equivocal pancreatic divisum. -General surgery consulted, after discussing with GI, given recurrent pancreatitis and findings of biliary sludge on ultrasound, plan for cholecystectomy in the morning, patient is in agreement. (2) DVT prophylaxis: -SCDs -encourage ambulation Admission and Anticipated Discharge Date Admission Date: December 27, 2019 Subjective Patient is sitting up in bed, in no acute distress. Discussed the results of MRCP, GI and general surgery consult. General surgery consulted for gallbladder sludge, and recurrent pancreatitis. Patient is in agreement to undergo possible cholecystectomy with general surgery tomorrow morning. Currently denies any fevers, chills, chest pain, shortness of breath. Says that he still has persistent epigastric and right upper quadrant pain however feels better, tolerates clear liquid diet. Did not have bowel movement since admission, passing flatus. His MRCP from yesterday indicated pancreatic divisum without acute abnormalities otherwise. lipase has trended down. General surgery has been consulted due to US findings of gallbladder sludge and recurrent pancreatitis. Review of Systems Review of Systems: All systems reviewed & are unremarkable except as noted in HPI & below Constitutional: no fever and no chills Respiratory: no cough and no dyspnea Cardiovascular: no chest pain, no dyspnea on exertion and no palpitations Gastrointestinal: + abdominal pain (RUQ, epigastric (improved)) Physical Exam Physical Exam: Physical Exam: Young male sitting up in bed in [facility] Constitutional: well developed, well nourished Eyes: PERRL, EOMI, conjunctivae normal, anicteric sclerae ENMT: external ear and nose normal, oropharynx normal Neck: normal visual inspection Respiratory: normal respiratory effort, lungs clear to auscultation Cardiovascular: RRR, no murmur, no edema Gastrointestinal (Abdomen): Inspection/Auscultation: abdomen normal to inspection and normal bowel sounds Percussion/Palpation: + abdomen tender (Mildly tender in the epigastrium and RUQ) and abdomen soft; no guarding and abdomen not rigid, obese Musculoskeletal: No acute arthritis involving any joint, moves all 4 extremities spontaneously, ambulates without difficulty Skin: no rashes, warm and dry Psychiatric: A+Ox3, euthymic affect Results & Data ([facility]) Vital Signs (Past 12 Hours) Vital Signs Temp Pulse Resp BP Pulse Ox 12/29/19 07:41 36.7 C 65 18 128/83 97 12/28/19 23:54 36.7 C 76 15 128/88 94 Laboratory Results reviewed Medications Administered reviewed (1) Acute pancreatitis Acute pancreatitis complication: unspecified Pancreatitis type: unspecified pancreatitis type Qualified Code(s): K85.90 - Acute pancreatitis without necrosis or infection, unspecified
[2019-12-29] MEDS ORDERED: CEFAZOLIN 2000MG 2,000 MG/15 ML SYR IV ONE (14:00)
--- NOTE | 2019-12-29 21:08 | Anesthesiology Consultation ---
Date of Service December 29, 2019 Assessment & Plan (1) Encounter for pre-operative examination: Chart Review Chart Review: Acceptable Risk for Surgery and Patient NOT seen in Pre Admission Testing Consults Requested none History Surgery Operation Date: 12/30/19 08:20 Proposed Procedures p Laparoscopic Cholecystectomy, Possible Cholangiogram - Alexey Hinton MD Height/Weight Height: 5 ft 9 in Weight: 109.6 kg Allergies Allergy/AdvReac Type Severity Reaction Status Date / Time Penicillins Allergy Unknown Unverified 12/27/19 18:17 Medications Home Medications Medication Instructions Recorded Confirmed Last Taken prednisone 0 mg PO .DAILY/UD 12/27/19 12/27/19 Unknown Active Medications Generic Name Dose Route Start Last Admin Trade Name Freq PRN Reason Stop Dose Admin Lactated Ringer's 1,000 mls @ 150 mls/hr 12/27/19 19:34 12/29/19 18:18 Lr IV 01/26/20 19:33 150 mls/hr .Q6H40M AMARI Administration Morphine Sulfate 4 mg 12/27/19 19:34 12/29/19 18:15 Morphine Sulfate IV 01/10/20 19:33 4 mg Q4H PRN Administration Pain Ondansetron HCl 4 mg 12/29/19 01:03 12/29/19 01:17 Zofran IV 01/28/20 01:02 4 mg Q6H PRN Administration Nausea NPO Date Last Intake of Fluids: 12/28/19 Time Last Intake of Fluids: 23:59 Date Last Intake of Solids: 12/28/19 Time Last Intake of Solids: 23:59 Past Medical History Medical History Pancreatitis Past Family History Family History Mother Hypertension Social History Smoking Status: Former smoker tobacco type: e-cigarettes Do You Dip or Chew Tobacco: No Hx Alcohol Use: Yes alcohol intake frequency: holidays/special occasions only Hx Substance Use: Yes substance use type: prescription drug Last Used Substance: Days (ago) Last Used Substance Other:: 12/26/2019 Physical Exam Vital Signs Last Vital Signs Temp 36.6 C 12/29/19 15:15 Pulse 75 12/29/19 15:15 Resp 16 12/29/19 15:15 BP 142/90 H 12/29/19 15:15 Pulse Ox 97 12/29/19 15:15 Testing Laboratory Results 12/29/19 06:36 12/29/19 06:36
[2019-12-30] MEDS: MoRPHine SULFATE 4 MG/ML 1 ML CARP\\VIAL IV PRN ×6 (02:39→22:35)
[2019-12-30] MEDS: LACTATED RINGER'S 1,000 ML IV SCH ×3 (05:45→22:35)
[2019-12-30 07:14] LABS: Hematocrit (blood only) 41.6 % (42-52); Hemoglobin 14.3 g/dL (14.0-18.0); Mean Corpuscular Hemoglobin 30.7 pg (25-34); Mean Corpuscular Hgb Conc 34.4 g/dL (32-36); Mean Corpuscular Volume 89.3 fL (80-100); Platelet Count 209 K/uL (130-400); RDW Coefficient of Variation 13.3 % (11.5-14.5); RDW Standard Deviation 43.8 fL (36.4-46.3); Red Blood Count 4.66 M/uL (4.7-6.1); White Blood Count 7.79 K/uL (4.8-10.8)
[2019-12-30] MEDS ORDERED: ROCURONIUM BROMIDE 10 MG/ML 5 ML VIAL ONE (07:16)
[2019-12-30] MEDS ORDERED: GLYCOPYRROLATE 0.2 MG/ML VIAL ONE (07:16)
[2019-12-30] MEDS ORDERED: LIDOCAINE HCL 2% 2 ML VIAL/AMP(20MG/ML) INFIL ONE (07:16)
[2019-12-30] MEDS ORDERED: NEOSTIGMINE METHYLSULFATE 5 MG/5 ML SYR ONE (07:16)
[2019-12-30] MEDS ORDERED: fentaNYL citrate 100 MCG/2 ML VIAL ONE (07:16)
[2019-12-30] MEDS ORDERED: DEXAMETHASONE SOD INJ 4 MG/ML VIAL ONE (07:16)
[2019-12-30] MEDS ORDERED: PROPOFOL IV EMULSION 10 MG/ML 20 ML VIAL IV ONE (07:16)
[2019-12-30] MEDS ORDERED: ONDANSETRON INJ 2 MG/ML 2 ML VIAL ONE (07:16)
[2019-12-30] MEDS ORDERED: MIDAZOLAM HCL 1 MG/ML 2ML VIAL ONE (07:17)
[2019-12-30] MEDS ORDERED: ATROPINE SULFATE 0.1 MG/ML 10ML SYR IV PRN (07:40)
[2019-12-30] MEDS ORDERED: ePHEDrine sulfate 50 MG/ML AMP IV PRN (07:40)
[2019-12-30] MEDS ORDERED: ONDANSETRON INJ 2 MG/ML 2 ML VIAL IV PRN (07:40)
[2019-12-30] MEDS ORDERED: HYDROmorphone INJ 1 MG/ML SYRINGE IV PRN (07:40)
[2019-12-30 07:49] LABS: Calcium 8.7 mg/dl (8.5-10.1); Creatinine Clr Calc Pharmacy 150.5 ml/min; Est GFR (African American) 130.9
--- NOTE | 2019-12-30 08:08 | History & Physical Bridge Note ---
Date of Service December 30, 2019 History & Physical Bridge Note I have examined the patient, reviewed the History & Physical and in the interval since the performance of the History & Physical I have noted the following changes of clinical significance: no changes noted pt examined no acute problems had a good night SO at bedside permit signed
[2019-12-30] MEDS ORDERED: CONRAY 60% 50 ML VIAL ONE (08:18)
[2019-12-30] MEDS ORDERED: LIDOCAINE/EPINEPHRINE 1% 20 ML VIAL ONE (08:18)
[2019-12-30] MEDS ORDERED: HYDROCORTISONE SOD SUCCINATE 100 MG/2 ML VIAL ONE (08:52)
--- NOTE | 2019-12-30 09:29 | Post Operative Brief Note ---
PG Immediate Post Op with CF Date of Surgery December 30, 2019 Pre & Post Diagnosis Operation Date: 12/30/19 08:20 Pre-Op Diagnosis: Recurrent Pancreatitis, Cholecystitis Post-Op Diagnosis: Recurrent Pancreatitis, Cholecystitis I identified the patient and participated in the time-out.: Yes Procedure Operation Date: 12/30/19 08:20 Actual Procedures p Laparoscopic Cholecystectomy with Intraoperative Cholangiogram - Alexey Hinton MD Surgeon Alexey Hinton MD Assistant Distribution Manager b justina lundy Estimated Blood Loss 10 Findings Consistent with Post-Op Diagnosis Specimens Specimen Description: A. Gallbladder
--- NOTE | 2019-12-30 09:47 | Operative Report ---
PG Post Operative Report Pre & Post Diagnosis Operation Date: 12/30/19 08:20 Pre-Op Diagnosis: Recurrent Pancreatitis, Cholecystitis Post-Op Diagnosis: Recurrent Pancreatitis, Cholecystitis I identified the patient and participated in the time-out.: Yes Procedure Operation Date: 12/30/19 08:20 Actual Procedures p Laparoscopic Cholecystectomy with Intraoperative Cholangiogram - Alexey Hinton MD The patient was brought into the operating room theater supine position general endotracheal anesthesia the abdomen was prepped Betadine scrub and solution and properly draped timeout was had patient was identified small incision supraumbilically sufficiently Veress needle followed by CO2 followed by 5 mm trocar point of interest bacteroids identified and direct visualization 5 mm epigastric port was placed with local analgesic and 2 5 mm subcostal ports in a similar fashion gallbladder was identified patient was placed in reverse Trendelenburg rotated to the left gallbladder was grasped lateral right upper quadrant trocar site port adhesions to gallbladder which is omental adhesions stuck were taken down by sharp and blunt dissection there were quite significant we took all the way down to the neck of the gallbladder we were able to get surround the cystic duct with a very small we were able to get around it small bleeder was cauterized a clip was placed proximally small opening cystic duct was made and #4 urethral catheter transversing abdominal wall was placed in the cystic duct serial x-rays were taken which showed no filling defects in the common bile duct the distal common bile duct appeared to be strictured down. This point cystic duct was actually could be seen as labetalol therefore we choked on it and clipped it approximately twice a distally twice with 5 mm clips and divided cystic artery some identified doubly clipped and divided few other branches similarly clipped the gallbladder is removed in antegrade fashion using electrocautery leaving as much posterior peritoneum was possible the gallbladder was taken out and placed in an Endopouch through the epigastric port we did open it the patient had classical cholesterolosis of the gallbladder. We at this point then checked the subhepatic area making sure there is no stasis there was just a little bit of oozing of some fatty tissue which we were able to control without problem count was placed on right upper quadrant port site to visualize the umbilical entry there was no injury identified this point individual trochars were taken out on direct visualization in the last umbilical trocar wounds were closed with 4-0 Vicryl Steri-Strips applied estimated blood loss 10 cc addendum Demond lundy was present throughout the case and helped with exp osure retraction and wound closure Surgeon Alexey Hinton MD Radiological Engineer lucrecia lundy Estimated Blood Loss 10 Findings Consistent with Post-Op Diagnosis Specimens gallbladder and contents Description of Procedure merda I attest to the content of the Intraoperative Record and any orders documented therein. Any exceptions are noted below.
[2019-12-30] MEDS: fentaNYL citrate 100 MCG/2 ML VIAL IV PRN ×4 (09:55→10:10)
--- NOTE | 2019-12-30 10:11 | Anesthesiology Progress Note ---
Date of Service December 30, 2019 Anesthesia Post Procedure Vital Signs Vital Signs: Temp Pulse Pulse Resp BP Pulse Ox 12/30/19 10:05 93 H 15 140/93 99 12/30/19 09:55 83 13 142/92 H 99 12/30/19 09:48 36.1 C L 109 H 13 141/93 H 100 12/30/19 07:28 36.6 C 66 16 127/92 98 12/30/19 07:15 36.7 C 73 16 135/85 96 12/29/19 23:53 37.0 C 73 15 130/85 98 12/29/19 15:15 36.6 C 75 16 142/90 H 97 Pain Intensity Abdomen: Pain Intensity: 4 Transfer of Care Handoff Completed per policy Notes Mental Status: alert / awake / arousable and participated in evaluation Patient Amnestic to Procedure: Yes Nausea / Vomiting: adequately controlled Pain: adequately controlled Airway Patency, RR, SpO2: stable & adequate BP & HR: stable & adequate Hydration State: stable & adequate Anesthetic Complications: no major complications apparent and Pt Satisfied with anesthetic care
--- NOTE | 2019-12-30 11:39 | Hospitalist Progress Note ---
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 No biliary ductal dilation. Mildly increased echogenicity of the liver may reflect hepatic steatosis. -Mild ALT elevation however other LFTs WNL -Continue supportive care with IVF, pain and nausea control -Hold steroids for now -Clear liquid diet -GI consult (patient requesting [facility] for second opinion) -if MRCP negative, recommend to consult general surgery given recurrent pancreatitis, and biliary sludge on ultrasound. Otherwise would recommend further evaluation at tertiary care center -Lipid profile and triglyceride remain unremarkable -Has had outpatient work-up including EUS -Check MRCP (12/29/2019) -no evidence of ductal dilatation, no calculi identified, equivocal pancreatic divisum. -General surgery consulted, after discussing with GI, given recurrent pancreatitis and findings of biliary sludge on ultrasound, plan for cholecystectomy this AM, patient is in agreement. -Now s/p lap cholecystectomy (12/30/2019), tolerated procedure well, complains of some RUQ and epigastric pain, tolerates clear liquid diet, ambulates, passing flatus (2) DVT prophylaxis: -SCDs -encourage ambulation Admission and Anticipated Discharge Date Admission Date: December 27, 2019 Anticipated date of discharge: 12/31/19 Subjective Patient is sitting up in bed, in no acute distress. Currently s/p lap cholecystectomy w/ general surgery earlier today. Denies any fevers, chills, chest pain, shortness of breath. He has epigastric and right upper quadrant pain but tolerable, tolerates clear liquid diet. Did not have bowel movement since admission, passing flatus. Fiance at the bedside updated. Review of Systems Review of Systems: All systems reviewed & are unremarkable except as noted in HPI & below All systems reviewed and are unremarkable except as noted below Constitutional: no fever and no chills Respiratory: no cough and no dyspnea Cardiovascular: no chest pain and no palpitations Gastrointestinal: + abdominal pain (RUQ, epigastric ) Physical Exam Physical Exam: Physical Exam: Young male sitting up in bed in [facility] Constitutional: well developed, well nourished, obese Eyes: PERRL, EOMI, conjunctivae normal, anicteric sclerae ENMT: external ear and nose normal, oropharynx normal Neck: normal visual inspection Respiratory: normal respiratory effort, lungs clear to auscultation Cardiovascular: RRR, no murmur, no edema Gastrointestinal (Abdomen): Inspection/Auscultation: abdomen normal to inspection and normal bowel sounds Percussion/Palpation: + abdomen tender (Mildly tender in the epigastrium and RUQ) and abdomen soft; no guarding and abdomen not rigid, +obese, small incisions post surgery, no significant erythema, edema or drainage Musculoskeletal: No acute arthritis involving any joint, moves all 4 extremities spontaneously, ambulates without difficulty Skin: no rashes, warm and dry Psychiatric: A+Ox3, euthymic affect Results & Data ([facility]) Vital Signs (Past 12 Hours) Vital Signs Temp Pulse Pulse Resp BP Pulse Ox 12/30/19 11:15 78 16 126/82 92 12/30/19 10:40 37.1 C 99 H 14 138/89 97 12/30/19 10:35 36.4 C L 82 14 133/90 97 12/30/19 10:25 80 14 132/87 96 12/30/19 10:15 85 12 139/99 96 12/30/19 10:05 93 H 15 140/93 99 12/30/19 09:55 83 13 142/92 H 99 12/30/19 09:48 36.1 C L 109 H 13 141/93 H 100 12/30/19 07:28 36.6 C 66 16 127/92 98 12/30/19 07:15 36.7 C 73 16 135/85 96 12/29/19 23:53 37.0 C 73 15 130/85 98 Laboratory Results 12/30/19 12/30/19 Range/Units 06:49 06:49 WBC 7.79 (4.8-10.8) K/uL RBC 4.66 L (4.7-6.1) M/uL Hgb 14.3 (14.0-18.0) g/dL Hct 41.6 L (42-52) % MCV 89.3 (80-100) fL MCH 30.7 (25-34) pg MCHC 34.4 (32-36) g/dL RDW Std Deviation 43.8 (36.4-46.3) fL RDW Coeff of Brayan 13.3 (11.5-14.5) % Plt Count 209 (130-400) K/uL MPV 11.0 H (7.4-10.4) fL Sodium 138 (136-145) mmol/L Potassium 4.0 (3.5-5.1) mmol/L Chloride 105 (98-107) mmol/L Carbon Dioxide 30 (21-32) mmol/L Anion Gap 3.0 (3-11) BUN 5 L (7-18) mg/dl Creatinine 0.82 (0.6-1.4) mg/dl Est Cr Clr Drug Dosing 150.5 ml/min Est GFR ( Amer) 130.9 Est GFR (Non-Af Amer) 113.0 Fasting Glucose 94 (70-99) mg/dl Calcium 8.7 (8.5-10.1) mg/dl Magnesium 2.0 (1.8-2.4) mg/dl Medications Administered Current Inpatient Medications Lactated Ringer's (Lr) 1,000 mls @ 150 mls/hr IV .Q6H40M AMARI Stop: 01/26/20 19:33 Last Infusion: 12/30/19 08:28 Dose: Infused Documented by: Morphine Sulfate (Morphine Sulfate) 4 mg IV Q1H PRN PRN Reason: Pain Stop: 01/13/20 10:41 Ondansetron HCl (Zofran) 4 mg IV Q6H PRN PRN Reason: Nausea Stop: 01/28/20 01:02 Last Admin: 12/29/19 01:17 Dose: 4 mg Documented by: (1) Acute pancreatitis Acute pancreatitis complication: unspecified Pancreatitis type: unspecified pancreatitis type Qualified Code(s): K85.90 - Acute pancreatitis without necrosis or infection, unspecified
[2019-12-31] MEDS: MoRPHine SULFATE 4 MG/ML 1 ML CARP\\VIAL IV PRN ×5 (00:38→13:19)
[2019-12-31] MEDS: LACTATED RINGER'S 1,000 ML IV SCH ×2 (05:06→11:57)
--- NOTE | 2019-12-31 06:50 | Surgery Progress Note ---
Date of Service December 31, 2019 Assessment & Plan (1) Pancreatitis: pod 1 Status post laparoscopic cholecystectomy intraoperative cholangiogram The patient could be discharged from the surgical point of view return to our office in [address] for 3 days especially if taken prescription drugs no lifting greater than 10 pounds If the patient should have recurrent bouts of pancreatitis the next step would be to get a secretin MRCP to visualize the pancreatic divisum if this is real From my point of view the patient analgesics can be limited to a Motrin Advil and really does not need any narcotics This is a 39y M who presents to the [facility] ED on 12/26 with abdominal pain. His pain seems to be pretty persistent since November and this is his 3rd readmission for similar symptoms for pancreatitis. Appreciate GI and medicine input. Lipase is downtrending was 1116 on admission, 575 yesterday. Today tbili: 0.6. AST: 23, ALT: 79, Alkp: 58, WBC 7.4. Imaging reveals + sludge in the gallbladder and pancreatic divisum. I will talk to Dr. Hinton, for now we will tentatively plan to schedule the patient for the OR tomorrow for laparoscopic cholecystectomy with possible cholangiogram. Please keep patient NPO with IVF. discussed procedure r and c with pt and agrees to proceed in am all questions answered Subjective POD 1 Patient is resting comfortably without any issues operative findings were discussed with the patient He tolerated oral intake last night Patient is sitting up in bed, in no acute distress. Currently s/p lap cholecystectomy w/ general surgery earlier today. Denies any fevers, chills, chest pain, shortness of breath. He has epigastric and right upper quadrant pain but tolerable, tolerates clear liquid diet. Did not have bowel movement since admission, passing flatus. Fiance at the bedside updated. Physical Exam Physical Exam: Is alert coherent no problems Abdomen completely benign trocar sites are healing well Steri-Strips intact and no bleeding Results & Data Vital Signs (Past 12 Hours) Vital Signs Temp Pulse Resp BP Pulse Ox 12/31/19 03:48 36.7 C 66 15 121/75 96 12/30/19 22:52 37.1 C 90 16 142/95 H 95 PG Care Time/CCT Total # of Minutes Spent Total Time Spent with Patient: Total time spent is greater than 50% in coordination of care (as documented) at patient's floor/unit and/or counseling patient: Coding Level of Care Code None Diagnoses Pancreatitis K85.00 Chronicity: acute Pancreatitis type: idiopathic Acute pancreatitis complication: no infection or necrosis (1) Pancreatitis Chronicity: acute Pancreatitis type: idiopathic Acute pancreatitis complication: no infection or necrosis Qualified Code(s): K85.00 - Idiopathic acute pancreatitis without necrosis or infection
[2019-12-31 07:28] LABS: Hematocrit (blood only) 39.8 % (42-52); Hemoglobin 13.9 g/dL (14.0-18.0); Mean Corpuscular Hemoglobin 30.8 pg (25-34); Mean Corpuscular Hgb Conc 34.9 g/dL (32-36); Mean Corpuscular Volume 88.1 fL (80-100); Mean Platelet Volume 11.1 fL (7.4-10.4); Platelet Count 243 K/uL (130-400); RDW Coefficient of Variation 13.3 % (11.5-14.5); RDW Standard Deviation 42.9 fL (36.4-46.3); Red Blood Count 4.52 M/uL (4.7-6.1); White Blood Count 10.71 K/uL (4.8-10.8)
--- NOTE | 2019-12-31 07:45 | Fluoroscopy Report ---
[place] cholangiogram OR CLINICAL HISTORY: 39 years-old Male presenting with CHOLANGIOGRAM. TECHNIQUE: Fluoroscopy was provided for an intraoperative cholangiogram. 3 fluoroscopic image(s) jamel rded. COMPARISON: Right upper quadrant ultrasound from 12/27/2019 and MRCP from 12/29/2019. FINDINGS: Procedure: The gallbladder has been surgically removed. A catheter was advanced into the cystic duct with opacification of the intrahepatic and extra hepatic bile ducts. Mild irregularity of the distal common duct. No gross evidence of a filling defect within the ducts. Peritoneal spillage: Trace peritoneal spillage of contrast consistent with a leak, likely at the cyst ic duct injection site. Extrahepatic bile ducts: The common bile duct may be mildly stenotic in the distal portion. There are no filling defects seen within the common bile duct to suggest a retained stone. Contrast extends i nto the small bowel. Intrahepatic bile ducts: There is no intrahepatic bile duct dilatation. Fluoroscopy dosage (mGy): 0.87. Fluoroscopy time: 2.8 seconds. Number or time of high level fluoroscopy (HLF), digital spot, or digital subtraction images: 0. IMPRESSION: The patient is status post cholecystectomy. No filling defects within the bile ducts. ACT 112: Negative or not required by law. Electronically signed by: Pramod Sheets M.D. 12/30/2019 9:40 AM
[2019-12-31 08:02] LABS: Alanine Aminotransferase 72 U/L (12-78); Albumin Level 3.3 gm/dl (3.4-5.0); Aspartate Aminotransferase 27 U/L (15-37); Bilirubin Direct < 0.1 mg/dl (0-0.2); Blood Urea Nitrogen 7 mg/dl (7-18); Carbon Dioxide 27 mmol/L (21-32); Chloride 106 mmol/L (98-107); Creatinine Clr Calc Pharmacy 152.3 ml/min; Est GFR (African American) 131.6; Est GFR (Non-African American) 113.5; Glucose Fasting 110 mg/dl (70-99); Lipase 128 U/L (73-393); Magnesium 1.9 mg/dl (1.8-2.4); Potassium 3.8 mmol/L (3.5-5.1); Sodium 139 mmol/L (136-145)
[2019-12-31 08:04] LABS: Alkaline Phosphatase 60 U/L (45-117); Bilirubin,Total 0.5 mg/dl (0.2-1); Total Protein 6.7 gm/dl (6.4-8.2)
--- NOTE | 2019-12-31 08:48 | Anesthesiology Progress Note ---
Date of Service December 31, 2019 Anesthesia Post Procedure Vital Signs Vital Signs: Temp Pulse Pulse Resp BP Pulse Ox 12/31/19 07:34 36.7 C 61 18 125/83 97 12/31/19 03:48 36.7 C 66 15 121/75 96 12/30/19 22:52 37.1 C 90 16 142/95 H 95 12/30/19 16:00 36.7 C 109 H 17 134/90 94 12/30/19 13:47 37 C 93 H 17 122/78 94 12/30/19 12:52 36.5 C 95 H 20 132/95 93 12/30/19 11:15 78 16 126/82 92 12/30/19 10:40 37.1 C 99 H 14 138/89 97 12/30/19 10:35 36.4 C L 82 14 133/90 97 12/30/19 10:25 80 14 132/87 96 12/30/19 10:15 85 12 139/99 96 12/30/19 10:05 93 H 15 140/93 99 12/30/19 09:55 83 13 142/92 H 99 12/30/19 09:48 36.1 C L 109 H 13 141/93 H 100 Pain Intensity Abdomen: Pain Intensity: 2 Notes Mental Status: alert / awake / arousable Patient Amnestic to Procedure: Yes Nausea / Vomiting: adequately controlled Pain: adequately controlled Airway Patency, RR, SpO2: stable & adequate BP & HR: stable & adequate Hydration State: stable & adequate Anesthetic Complications: no major complications apparent and Pt Satisfied with anesthetic care
--- NOTE | 2019-12-31 14:06 | Discharge Summary ---
Date of Service December 31, 2019 Admission HPI Per Admitting Provider 39-year-old male who presents the ED for evaluation of abdominal pain. Patient has had 2 admissions to [facility] for pancreatitis. First admission 11/25 through 11/27 and second admission 12/06 through 12/10. Initially pancreatitis was felt to be secondary to possible passed gallstone. 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 Patient was started on steroids during his second admission and had significant improvement in his symptoms. He underwent EGD and EUS on 12/09. He was found to have esophageal polyp and signs of fatty liver. He followed up with GI on 12/23 as an outpatient. ROBBI and IgG4 subclasses were all found to be within normal limits and therefore patient was instructed to taper his steroids. Patient reports that about 2 days ago his pain has started to worsen. He has been tolerating clear liquids however when he advances his diet, pain is worsened. He has had some nausea but denies any vomiting. He has had a few episodes of diarrhea. No black or pink rectum or dark tarry stools. He denies chest pain or shortness of breath. No lightheadedness, dizziness, diaphoresis, syncopal events. No fevers or chills. He denies any urinary symptoms. In the ED, lipase is found to be 1116. Patient was given IVF, IV morphine, and IV Zofran. Admission Exam Per Admitting Provider General: Alert and oriented x 3. NAD HENT: Normocephalic, atraumatic, pupils round and equally reactive to light, oral mucosa: moist Neck: Supple, no lymph nodes palpated, no thyromegaly CVS: Normal S1, S2. No murmur, rub or gallop. PMI non displaced. Peripheral pulses normal. Resp: Normal percussion. Normal breath sounds bilaterally. No wheezing or rales heard Abdomen: Soft, tender in the epigastrium, no hepatosplenomegaly. Bowel sounds positive Extremities: No pitting edema Neuro: Power 5/5 throughout, grossly normal sensations, DTR's normal Psychiatry: Normal mood, normal thought process Principal Diagnosis Recurrent pancreatitis, biliary sludge now s/p laparoscopic cholecystectomy Discharge Exam Physical Exam: Young male sitting up in bed in NAD Constitutional: well developed, well nourished, obese Eyes: PERRL, EOMI, conjunctivae normal, anicteric sclerae ENMT: external ear and nose normal, oropharynx normal Neck: normal visual inspection Respiratory: normal respiratory effort, lungs clear to auscultation Cardiovascular: RRR, no murmur, no edema Gastrointestinal (Abdomen): Inspection/Auscultation: abdomen normal to inspection and normal bowel sounds Percussion/Palpation: + abdomen tender (Mildly tender in the epigastrium and RUQ) and abdomen soft; no guarding and abdomen not rigid, +obese, small incisions post surgery, no significant erythema, edema or drainage Musculoskeletal: No acute arthritis involving any joint, moves all 4 extremities spontaneously, ambulates without difficulty Skin: no rashes, warm and dry Psychiatric: A+Ox3, euthymic affect Discharge Data Allergies Allergy/AdvReac Type Severity Reaction Status Date / Time Penicillins Allergy Unknown Unverified 01/03/20 17:02 Consultations 12/27/19 18:10 ED Decision to Admit Stat 12/27/19 19:34 Consult Gastroenterology Routine 12/29/19 08:44 Consult General Surgery Routine Procedures Performed Operation Date: 12/30/19 08:20 Actual Procedures p Laparoscopic Cholecystectomy with Intraoperative Cholangiogram - Alexey Hinton MD Ordered Studies 12/27/19 18:59 US liver Routine IMPRESSION: 1. Pancreas is mostly obscured by bowel gas. The visualized portions appear unremarkable. 2. Trace, bladder sludge without cholelithiasis or sonographic evidence of acute cholecystitis. 3. No biliary ductal dilation. 4. Mildly increased echogenicity of the liver may reflect hepatic steatosis. 12/29/19 00:14 MR MRCP Routine IMPRESSION: 1. No evidence of ductal dilatation 2. No calculi identified 3. Equivocal pancreatic divisum 12/30/19 08:20 [place] cholangiogram OR Routine IMPRESSION: The patient is status post cholecystectomy. No filling defects within the bile ducts. 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 No biliary ductal dilation. Mildly increased echogenicity of the liver may reflect hepatic steatosis. -Mild ALT elevation however other LFTs WNL -Continue supportive care with IVF, pain and nausea control -Hold steroids for now -Clear liquid diet -GI consult (patient requesting [facility] for second opinion) -if MRCP negative, recommend to consult general surgery given recurrent pancreatitis, and biliary sludge on ultrasound. Otherwise would recommend further evaluation at tertiary care center -Lipid profile and triglyceride remain unremarkable -Has had outpatient work-up including EUS -Check MRCP (12/29/2019) -no evidence of ductal dilatation, no calculi identified, equivocal pancreatic divisum. -General surgery consulted, after discussing with GI, given recurrent pancreatitis and findings of biliary sludge on ultrasound, plan for cho lecystectomy, patient is in agreement. -Now s/p lap cholecystectomy (12/30/2019), tolerated procedure well, has only mild RUQ and epigastric pain, says that he feels well, and he tolerates a low- fat diet, interested in going home -Plan to follow-up with general surgery in 1 week (2) DVT prophylaxis: -SCDs -encourage ambulation Total Time Total Time Spent Total Time Spent (In Minutes): 40 Total Time Includes: Examination of the Patient, Discharge Planning, Medication Reconciliation and Communication With Other Providers Discharge Plan Discharge Items Patient Disposition: Home - Self-Care Reason For Visit: PANCREATITIS Discharge Diagnosis: Recurrent pancreatitis, biliary sludge now s/p laparoscopic cholecystectomy Activity: As commented below Lifting: No more than 10 pounds Bathing Comment: Can shower on Friday, leave steri-strips on for 1 week Driving/Machine Use: Resume 3 days after discharge Non-emergency contact: Surgeon Call non-emergency contact if: you have any medication questions, your pain is not controlled, you have a fever and your temperature is above 101.5 Follow-up/Referrals: Alexey Hinton MD [Surgeon] - 01/05/20 9:00 am (You have an appt in 1 week. If you need to change this appointment, please call [phone].) Kiko Celaya MD [Primary Care Provider] - 01/04/20 10:25 am (If you need to change this appointment, please call [phone].) Diet: Low Fat Addtl Attending Provider Instructions: Make sure to follow up with your health care providers as scheduled. Continue low fat diet. Follow instructions, as per surgery (no heavy lifting above 10 lbs, no driving for next 3 days etc.). Make sure to avoid constipation, take miralax, dulcolax, as needed. You should have soft stool daily. For pain, recommend Advil, Motrin. You will need to follow up with general surgery in 1 week. Pending Studies at Discharge: No Stand-Alone Forms: My [facility], Smoking Cessation Medications and DC Order Prescriptions: Discontinued prednisone 20 mg tablet 0 mg PO .DAILY/UD RF: 0 No Action No Known Home Medications RF: 0 Discharge Orders: Discharge Order (Routine); Ordered 12/31/19 Ordered By: Jann Cristina/Other Patient Handouts: Cooking Tips Low Fat, Cholecystectomy Laparoscopic Dc Admission Data Admit Date/Time: 12/27/19 18:40 Attending Provider: Jann Ruiz Admit Provider: Rocio Carver Primary Care Provider: Kiko Celaya I. Other Providers: Pedro Noble ; Alexey Hinton Other Interventions: Discharge Summary Assessment (RN) Last Done: 12/31/19 10:18 DC Date/Time DO NOT enter until pt leaves facility: 12/31/19 14:44
== END 2019-12-31 14:44 | disposition home or self-care (01) | DRG 418 ==
LOC: ED 16:41 → SUATTDRO 18:40 → 3W 18:40

== ENCOUNTER 2020-01-03 15:12 | Inpatient (IN) ==
[2020-01-03] MEDS ORDERED: KETOROLAC TROMETHAMINE 15 MG/ML VIAL IV STA (16:57)
[2020-01-03] MEDS ORDERED: SODIUM CHLORIDE 0.9% 1000ML 1,000 ML IV ONE (16:57)
[2020-01-03] MEDS ORDERED: ONDANSETRON INJ 2 MG/ML 2 ML VIAL IV STA (16:57)
[2020-01-03 17:18] LABS: Basophils # (auto) 0.06 K/uL (0-0.2); Basophils % (auto) 0.6 %; Eosinophils # (auto) 0.25 K/uL (0-0.5); Eosinophils % (auto) 2.4 %; Hematocrit (blood only) 46.3 % (42-52); Hemoglobin 16.2 g/dL (14.0-18.0); Immature Granulocytes # (auto) 0.05 K/uL (0.00-0.02); Immature Granulocytes % (auto) 0.5 %; Lymphocytes # (auto) 1.69 K/uL (1.2-3.4); Lymphocytes % (auto) 15.9 %; Mean Corpuscular Hemoglobin 31.2 pg (25-34); Mean Corpuscular Volume 89.2 fL (80-100); Mean Platelet Volume 11.4 fL (7.4-10.4); Monocytes # (auto) 0.92 K/uL (0.11-0.59); Monocytes % (auto) 8.7 %; Neutrophils # (auto) 7.64 K/uL (1.4-6.5); Neutrophils % (auto) 71.9 %; Platelet Count 235 K/uL (130-400); RDW Coefficient of Variation 13.2 % (11.5-14.5); RDW Standard Deviation 43.3 fL (36.4-46.3); Red Blood Count 5.19 M/uL (4.7-6.1); White Blood Count 10.61 K/uL (4.8-10.8)
[2020-01-03 17:38] LABS: Alanine Aminotransferase 65 U/L (12-78); Albumin Level 4.1 gm/dl (3.4-5.0); Aspartate Aminotransferase 23 U/L (15-37); BUN Creatinine Ratio 11.3 (10-20); Bilirubin Direct < 0.1 mg/dl (0-0.2); Blood Urea Nitrogen 10 mg/dl (7-18); Calcium 9.3 mg/dl (8.5-10.1); Carbon Dioxide 29 mmol/L (21-32); Chloride 105 mmol/L (98-107); Est GFR (African American) 121.1; Est GFR (Non-African American) 104.5; Glucose 97 mg/dl (70-99); Sodium 137 mmol/L (136-145)
[2020-01-03 17:41] LABS: Alkaline Phosphatase 74 U/L (45-117); Bilirubin,Total 0.5 mg/dl (0.2-1); Lipase 3061 U/L (73-393)
[2020-01-03] MEDS ORDERED: IOVERSOL 100ml IV PRN (17:52)
--- NOTE | 2020-01-03 18:06 | CT Scan Report ---
CT abd pelvis IV con only CLINICAL HISTORY: 39 years-old Male presenting with post operative pain. TECHNIQUE: Multidetector CT of the abdomen and pelvis was performed after the administration of intra venous contrast. IV contrast: 93 mL of Optiray 320. One or more dose lowering techniques were used co nsistent with the principles of ALARA (as low as reasonably achievable), including automatic exposure control, mA or kV adjustment to individual patient size, and/or use of iterative reconstruction. COMPARISON: MRCP from 12/29/2019 and right upper quadrant ultrasound from 12/27/2019. CT DOSE (mGy.cm): The estimated cumulative dose is 1021.56 mGy.cm. FINDINGS: Safety Manager topogram: Unremarkable. Lung bases: Normal heart size. No pericardial or pleural effusion. Minimal dependent changes likely a telectasis. Liver: Normal morphology. Density suggestive of hepatic steatosis. No focal lesion. Patent hepatic va sculature. Biliary: No intrahepatic or extrahepatic biliary ductal dilatation. Gallbladder surgically absent. Tr suly infiltration of the gallbladder fossa likely expected postsurgical change. No fluid collection in the gallbladder fossa or elsewhere in the perihepatic regions. Pancreas: Trace peripancreatic fat stranding along the pancreatic tail and body. No peripancreatic fl uid. Top normal prominence of the pancreatic duct. Underlying pancreas divisum not well appreciated. Spleen: Normal. Splenule noted. Adrenal glands: Normal. Kidneys and ureters: Normal. No hydronephrosis. Bladder: Normal. Pelvic organs: Prostate and seminal vesicles normal. Bowel: A few diverticula in the proximal sigmoid and descending colon without associated inflammatory change. A few diverticula in the right colon with inspissated material or prior contrast. No bowel o bstruction. The appendix is normal. The appendix likely contains prior oral contrast. Peritoneal cavity: No free fluid or intraperitoneal gas. Lymph nodes: No enlarged lymph nodes in the abdomen or pelvis. Vasculature: Aorta and IVC patent and normal in caliber. Abdominal wall: Small fat-containing umbilical hernia. Musculoskeletal: Normal. IMPRESSION: 1. Postsurgical changes of cholecystectomy. 2. Mild peripancreatic inflammatory changes concerning for interstitial edematous pancreatitis. Jay elate with lipase. This could relate to the recent ERCP in the setting of underlying risk factors suc h as pancreas divisum. No acute peripancreatic fluid collection. ACT 112: Negative or not required by law. Electronically signed by: Pramod Sheets M.D. 01/03/2020 6:05 PM
[2020-01-03 18:43] LABS: Appearance Urine Clear (Clear); Bilirubin Urine Negative (Negative); Blood Urine Negative (Negative); Color Urine Yellow; Glucose Urine UA Negative (Negative); Ketones Urine Negative (Negative); Leukocyte Esterase Urine Negative (Negative); Nitrite Urine Negative (Negative); Protein Urine Negative (Negative); Urobilinogen Urine Negative (Negative); pH Urine 5.5 (4.5-7.5)
[2020-01-03 19:01] LABS: Specific Gravity Urine > 1.045 (1.000-1.030)
[2020-01-03] MEDS ORDERED: LACTATED RINGER'S 1,000 ML IV ONE (19:27)
[2020-01-03] MEDS ORDERED: HYDROmorphone INJ 1 MG/ML SYRINGE IV STA (19:42)
--- NOTE | 2020-01-03 20:20 | History & Physical Report ---
Date of Service January 03, 2020 Assessment & Plan (1) Pancreatitis: Recurrent attacks hx pancreatic divisum on recent MRCP Prior consideration of autoimmune pancreatitis Recent cholecystectomy asthma, stable past tobacco abuse GMF Bowel rest Analgesia IVF GI consult RE recurrent pancreatitis Surgery consult RE postop eval. DVT prophylaxis per Lovenox subcu Full code Text document was generated using [employer] voice recognition software. It may contain grammatical or spelling errors. Kindly contact undersigned for clarification of any documentation item in question. History of Present Illness Chief Complaint: Abdominal pain Primary Care Provider: Kiko Celaya MD History obtained from patient and records. Medical history significant for recurrent pancreatitis, history pancreatic divisum, asthma, past tobacco abuse. Recent confinement at [facility] last week for recurrent pancreatitis (preceded by 2 confinements had [facility] last month for possible autoimmune pancreatitis sp steroid Rx). MRCP showed pancreatic divisum. [facility] service recommended outpatient evaluation by a hepatobiliary specialist at tertiary center. Surgery recommended second and MRCP to visualize pancreatic divisum if with recurrent bouts of pancreatitis. Patient underwent laparoscopic cholecystectomy during confinement. Last night patient had recurrence of achy epigastric discomfort similar to pancreatitis attack with nausea, no emesis. No fever, no chills. Tried to be compliant with low-fat diet recommendations post discharge. Admits to some bagel intake. Denies recent alcohol intake. Patient consulted ER for worsening symptoms. 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 Hinton 12/30/19 Social History Preferred Language: Tongan Communication Ability: Effective Advertising Display Rotator Required: No Beliefs That Will Affect Care: None Current Living Situation: Other Current Living Situation Comment: GIRL FRIEND Other Information That Helps Us Care for You: No Feels Safe at Home: Yes Safety Concerns: Feels Safe At This Time Smoking Status: Former smoker Tobacco Type: e-cigarettes ; Do You Dip or Chew Tobacco: No ; Second Hand Exposure: No ; Tobacco Cessation Education Requested by Patient: No Hx Alcohol Use: Yes (RARE) Alcohol type: beer and hard liquor Alcohol Intake Frequency: Rarely Hx Substance Use: No Review of Systems Review of Systems: As per HPI, all 10 systems reviewed, all other ROS negative Physical Exam Physical Exam: GENERAL: Comfortable, pleasant, obese, no respiratory distress SKIN: Normal color, warm HEENT: Alopecia, pink palpebral conjunctivae, no ptosis, dry buccal mucosa NECK : Supple, short neck, no tenderness CHEST : CTA, no tenderness HEART : RRR, no obvious murmurs ABDOMEN: Some distention, epigastric tenderness EXTREMITIES : No LE swelling/tenderness, no other conspicuous deformities noted NEUROLOGIC : Coherent, no facial asymmetry, no other gross focality Results & Data Vital Signs (Past 12 Hours) Vital Signs Temp Pulse Pulse Resp BP Pulse Ox 01/03/20 19:50 84 18 132/92 95 01/03/20 18:36 76 18 139/98 98 01/03/20 17:42 75 18 126/79 99 01/03/20 15:36 37.3 C 107 H 16 97 Laboratory Results Laboratory Results WBC 10.61 K/uL (4.8-10.8) 01/03/20 17:09 RBC 5.19 M/uL (4.7-6.1) 01/03/20 17:09 Hgb 16.2 g/dL (14.0-18.0) 01/03/20 17:09 Hct 46.3 % (42-52) 01/03/20 17:09 MCV 89.2 fL (80-100) 01/03/20 17:09 MCH 31.2 pg (25-34) 01/03/20 17:09 MCHC 35.0 g/dL (32-36) 01/03/20 17:09 RDW Std Deviation 43.3 fL (36.4-46.3) 01/03/20 17:09 RDW Coeff of Brayan 13.2 % (11.5-14.5) 01/03/20 17:09 Plt Count 235 K/uL (130-400) 01/03/20 17:09 MPV 11.4 fL (7.4-10.4) H 01/03/20 17:09 Immature Gran % (Auto) 0.5 % 01/03/20 17:09 Neut % (Auto) 71.9 % 01/03/20 17:09 Lymph % (Auto) 15.9 % 01/03/20 17:09 [place] % (Auto) 8.7 % 01/03/20 17:09 Eos % (Auto) 2.4 % 01/03/20 17:09 Baso % (Auto) 0.6 % 01/03/20 17:09 Immature Gran # (Auto) 0.05 K/uL (0.00-0.02) H 01/03/20 17:09 Neut # (Auto) 7.64 K/uL (1.4-6.5) H 01/03/20 17:09 Lymph # (Auto) 1.69 K/uL (1.2-3.4) 01/03/20 17:09 [place] # (Auto) 0.92 K/uL (0.11-0.59) H 01/03/20 17:09 Eos # (Auto) 0.25 K/uL (0-0.5) 01/03/20 17:09 Baso # (Auto) 0.06 K/uL (0-0.2) 01/03/20 17:09 Sodium 137 mmol/L (136-145) 01/03/20 17:09 Potassium 4.0 mmol/L (3.5-5.1) 01/03/20 17:09 Chloride 105 mmol/L (98-107) 01/03/20 17:09 Carbon Dioxide 29 mmol/L (21-32) 01/03/20 17:09 Anion Gap 3.0 (3-11) 01/03/20 17:09 BUN 10 mg/dl (7-18) 01/03/20 17:09 Creatinine 0.93 mg/dl (0.6-1.4) 01/03/20 17:09 Est Cr Clr Drug Dosing 124.0 ml/min 01/03/20 17:09 Est GFR ( Amer) 121.1 01/03/20 17:09 Est GFR (Non-Af Amer) 104.5 01/03/20 17:09 BUN/Creatinine Ratio 11.3 (10-20) 01/03/20 17:09 Glucose 97 mg/dl (70-99) 01/03/20 17:09 Calcium 9.3 mg/dl (8.5-10.1) 01/03/20 17:09 Magnesium 2.0 mg/dl (1.8-2.4) 01/03/20 17:09 Total Bilirubin 0.5 mg/dl (0.2-1) 01/03/20 17:09 Direct Bilirubin < 0.1 mg/dl (0-0.2) 01/03/20 17:09 AST 23 U/L (15-37) 01/03/20 17:09 ALT 65 U/L (12-78) 01/03/20 17:09 Alkaline Phosphatase 74 U/L (45-117) 01/03/20 17:09 Total Protein 8.0 gm/dl (6.4-8.2) 01/03/20 17:09 Albumin 4.1 gm/dl (3.4-5.0) 01/03/20 17:09 Lipase 3061 U/L (73-393) H 01/03/20 17:09 Urine Color Yellow 01/03/20 18:31 Urine Appearance Clear (Clear) 01/03/20 18:31 Urine pH 5.5 (4.5-7.5) 01/03/20 18:31 Ur Specific [place] > 1.045 (1.000-1.030) H 01/03/20 18:31 Urine Protein Negative (Negative) 01/03/20 18:31 Urine Glucose (UA) Negative (Negative) 01/03/20 18:31 Urine Ketones Negative (Negative) 01/03/20 18:31 Urine Blood Negative (Negative) 01/03/20 18:31 Urine Nitrite Negative (Negative) 01/03/20 18:31 Urine Bilirubin Negative (Negative) 01/03/20 18:31 Urine Urobilinogen Negative (Negative) 01/03/20 18:31 Ur Leukocyte Esterase Negative (Negative) 01/03/20 18:[address] abdomen pelvis: 1. Postsurgical changes of cholecystectomy. 2. Mild peripancreatic inflammatory changes concerning for interstitial edematous pancreatitis. Correlate with lipase. This could relate to the recent ERCP in the setting of underlying risk factors such as pancreas divisum. No acute peripancreatic fluid collection. (1) Pancreatitis Acute pancreatitis complication: unspecified Chronicity: acute Pancreatitis type: unspecified pancreatitis type Qualified Code(s): K85.90 - Acute pancreatitis without necrosis or infection, unspecified
[2020-01-03] MEDS ORDERED: PROMETHAZINE HCL 12.5 MG in SODIUM CHLORIDE 0.9% 50 ML IV PRN (21:52)
[2020-01-03] MEDS ORDERED: ACETAMINOPHEN 325 MG TAB PO PRN (21:52)
[2020-01-03] MEDS ORDERED: TRAMADOL HCL 50 MG TABLET PO PRN (21:52)
[2020-01-03] MEDS ORDERED: LORazepam 0.5 MG/1 ML VIAL IV PRN (21:52)
--- NOTE | 2020-01-03 22:12 | Emergency Department Note ---
Entered by Dylan Lee acting as a scribe for Joss Moore History of Present Illness General Chief complaint: Abdominal Pain Stated complaint: GALLBLADDER REMOVED DUE TO PANCREATITIS,PAINFUL Time Seen by Provider: 01/03/20 16:56 Source: patient History of Present Illness Onset (ago): day(s) (last night) Location: abdomen (upper) Pain Consistency: + constant Maximum Pain Intensity: 6 Associated symptoms: + other (Positive for nausea and night diaphoresis. Negative for vomiting and fever.) The patient is a 39 year old male who presents to the emergency department with complaints of constant upper abdominal pain beginning last night. The patient states that he has a history of recurrent pancreatitis. He notes that he also had a lap cholecystectomy done four days ago. He reports that he developed upper abdominal pain last night. He also complains of nausea and night diaphoresis. He denies any vomiting and fever. He denies any recent alcohol use. Home Medications Home Medications Medication Instructions Recorded Confirmed Type No Known Home Medications 01/03/20 01/03/20 History Allergies Allergy/AdvReac Type Severity Reaction Status Date / Time Penicillins Allergy Unknown Unverified 01/03/20 17:02 Past Med/Surg History Medical History (Updated 01/03/20 @ 20:04 by Dylan Lee) Pancreatitis Surgical History (Updated 12/30/19 @ 13:31 by Amisha Grullon RN) Hx laparoscopic cholecystectomy (12/30/19) Laparoscopic Cholecystectomy with Intraoperative Cholangiogram Dr. Hinton 12/30/19 Social History Preferred Language: Burkinan Communication Ability: Effective Spice Room Worker Required: No Beliefs That Will Affect Care: None Current Living Situation: Other Current Living Situation Comment: GIRL FRIEND Other Information That Helps Us Care for You: No Feels Safe at Home: Yes Safety Concerns: Feels Safe At This Time Smoking Status: Former smoker Tobacco Type: e-cigarettes ; Do You Dip or Chew Tobacco: No ; Second Hand Exposure: No ; Tobacco Cessation Education Requested by Patient: No Hx Alcohol Use: Yes (RARE) Alcohol type: beer and hard liquor Alcohol Intake Frequency: Rarely Hx Substance Use: No Review of Systems See HPI for pertinent positives & negatives. and A total of 10 systems reviewed and were otherwise negative Physical Exam Vital Signs Vital Signs - 24 hr 01/03/20 15:36 01/03/20 17:42 01/03/20 18:36 Temperature 37.3 C Temperature Source Oral Pulse Rate 107 H Pulse Rate [Apical] 75 76 Pulse Strength Normal Respiratory Rate 16 18 18 Respiratory Effort / Characteristics Non-Labored Respiratory Depth Normal Respiratory Pattern Regular Blood Pressure [Left Arm] 126/79 139/98 Blood Pressure Mean [Left Arm] 94 111 Blood Pressure Position Sitting Pulse Oximetry 97 99 98 Oxygen Delivery Method Room Air Room Air Room Air Sepsis Recent Fever Within 48 Hours No Sepsis Action Taken by Nursing No Action Required 01/03/20 19:50 Temperature Temperature Source Pulse Rate Pulse Rate [Apical] 84 Pulse Strength Respiratory Rate 18 Respiratory Effort / Characteristics Respiratory Depth Respiratory Pattern Blood Pressure [Left Arm] 132/92 Blood Pressure Mean [Left Arm] 105 Blood Pressure Position Pulse Oximetry 95 Oxygen Delivery Method Room Air Sepsis Recent Fever Within 48 Hours Sepsis Action Taken by Nursing GENERAL: He is oriented to person, place, and time. He appears well-developed and well-nourished. He does not appear distressed. HENT: Exam performed. - Head: Normocephalic and atraumatic. - Right Ear: External ear normal. No mastoid tenderness. - Left Ear: External ear normal. No mastoid tenderness. - Mouth/Throat: The oropharynx is clear and moist. No trismus in the jaw. No dental abscesses or uvula swelling. No oropharyngeal exudate or tonsillar abscesses. EYES: Conjunctivae and EOM are normal. Pupils are equal, round, and reactive to light. Right eye exhibits no discharge. Left eye exhibits no discharge. No scleral icterus. NECK: Normal range of motion. Neck supple. No JVD present. No spinous process tenderness present. No carotid bruit present. No rigidity. No tracheal deviation and normal range of motion present. No Brudzinski's sign and no Kernig's sign noted. CV: Normal rate, regular rhythm, normal heart sounds and intact distal pulses. There is no peripheral edema. Palpable radial pulses bue. PULM/CHEST: Effort normal and breath sounds normal. No respiratory distress. No stridor. He has no wheezes. He has no rales. - Chest Wall: He exhibits no tenderness. ABD: The abdomen is soft. Bowel sounds are normal. He has no distension. No mass is present. There is no rebound, no guarding, no Huggins's sign and no tenderness at McBurney's point. Rovsig negative. Pain to palpation of epigastric area, surgical wound on abdomen appears clean and dry, no bleeding, no surrounding erythema. MUSC/SKEL: Normal range of motion. There is no peripheral edema, tenderness or deformity. LYMPH: No cervical adenopathy. NEURO: He is alert and oriented to person, place, and time. He has normal strength. No cranial nerve deficit or sensory deficit. Coordination and gait normal. GCS eye subscore is 4. GCS verbal subscore is 5. GCS motor subscore is 6. Cerebellar tests wnl. SKIN: Skin is warm and dry. He is not diaphoretic. PSYCH: He has a normal mood and affect. Behavior is normal. Judgment and thought content normal. Course Course 1657: Per review of EMR, the patient has a history of recurrent pancreatitis. He had a lap eun done by Dr. Hinton on 12/30/19.The patient was evaluated in room C7. A complete history and physical exam was performed. 1821: Vital signs stable. Patient's lipase is elevated and CT shows acute pancreatitis. I spoke to Anna Cazares. She suggests admitting the patient to medicine and she will be in consult. [facility] hospitalist team was consulted and they stated to admit to the [facility] bargeman, Dr. Gastelum. 1927: Upon reevaluation, the patient is stable. I discussed the findings and the treatment plan with the patient. He expresses agreement and understanding. Anna Mckinney, was made aware of the patient. The patient will be evaluated for further management. Consultations Consultation #1: I spoke to Anna Cazares. She suggests admitting the patient to medicine and she will be in consult. Time: 18:21 Consultation #2: Anna Mckinney, was made aware of the patient. The patient will evaluate the patient for further management. Time: 19:27 Administered Medications Discontinued Medications Hydromorphone HCl (Dilaudid) 1 mg IV NOW STA Stop: 01/03/20 19:43 Last Admin: 01/03/20 19:45 Dose: 1 mg Documented by: [id number] Sodium Chloride (Nss 1000ml) 1,000 mls @ 999 mls/hr IV .Q1H1M ONE Stop: 01/03/20 17:57 Last Infusion: 01/03/20 18:35 Dose: 0 mls/hr Documented by: [id number] Admin: 01/03/20 17:12 Dose: 999 mls/hr Documented by: [id number] Lactated Ringer's (Lr) 1,000 mls @ 500 mls/hr IV .Q2H ONE Stop: 01/03/20 21:26 Last Infusion: 01/03/20 21:59 Dose: 0 mls/hr Documented by: [id number] Admin: 01/03/20 20:17 Dose: 500 mls/hr Documented by: [id number] Ioversol (Optiray 320 100ml) 93 ml IV ONCE PRN PRN Reason: Interaction Checking Stop: 01/07/20 17:51 Last Admin: 01/03/20 17:53 Dose: 93 ml Documented by: [id number] Ketorolac Tromethamine (Toradol) 15 mg IV NOW STA Stop: 01/03/20 16:58 Last Admin: 01/03/20 17:12 Dose: 15 mg Documented by: [id number] Ondansetron HCl (Zofran) 4 mg IV NOW STA Stop: 01/03/20 16:58 Last Admin: 01/03/20 17:12 Dose: 4 mg Documented by: [id number] Medical Decision Making Medical Records Attestation: I reviewed the patient's medical records. Home Medications Current Medication List: was personally reviewed by me Laboratory Data Attestation: I reviewed the patient's lab results. Result diagrams: 01/03/20 17:09 01/03/20 17:09 Lab Results 01/03/20 01/03/20 01/03/20 Range/Units 17:09 17:09 17:09 WBC 10.61 (4.8-10.8) K/uL RBC 5.19 (4.7-6.1) M/uL Hgb 16.2 (14.0-18.0) g/dL Hct 46.3 (42-52) % MCV 89.2 (80-100) fL MCH 31.2 (25-34) pg MCHC 35.0 (32-36) g/dL RDW Std Deviation 43.3 (36.4-46.3) fL RDW Coeff of Brayan 13.2 (11.5-14.5) % Plt Count 235 (130-400) K/uL MPV 11.4 H (7.4-10.4) fL Immature Gran % (Auto) 0.5 % Neut % (Auto) 71.9 % Lymph % (Auto) 15.9 % [place] % (Auto) 8.7 % Eos % (Auto) 2.4 % Baso % (Auto) 0.6 % Immature Gran # (Auto) 0.05 H (0.00-0.02) K/uL Neut # (Auto) 7.64 H (1.4-6.5) K/uL Lymph # (Auto) 1.69 (1.2-3.4) K/uL [place] # (Auto) 0.92 H (0.11-0.59) K/uL Eos # (Auto) 0.25 (0-0.5) K/uL Baso # (Auto) 0.06 (0-0.2) K/uL Sodium 137 (136-145) mmol/L Potassium 4.0 (3.5-5.1) mmol/L Chloride 105 (98-107) mmol/L Carbon Dioxide 29 (21-32) mmol/L Anion Gap 3.0 (3-11) BUN 10 (7-18) mg/dl Creatinine 0.93 (0.6-1.4) mg/dl Est Cr Clr Drug Dosing 124.0 ml/min Est GFR ( Amer) 121.1 Est GFR (Non-Af Amer) 104.5 BUN/Creatinine Ratio 11.3 (10-20) Glucose 97 (70-99) mg/dl Calcium 9.3 (8.5-10.1) mg/dl Magnesium 2.0 (1.8-2.4) mg/dl Total Bilirubin 0.5 (0.2-1) mg/dl Direct Bilirubin < 0.1 (0-0.2) mg/dl AST 23 (15-37) U/L ALT 65 (12-78) U/L Alkaline Phosphatase 74 (45-117) U/L Total Protein 8.0 (6.4-8.2) gm/dl Albumin 4.1 (3.4-5.0) gm/dl Lipase 3061 H (73-393) U/L Urine Color Urine Appearance (Clear) Urine pH (4.5-7.5) Ur Specific [place] (1.000-1.030) Urine Protein (Negative) Urine Glucose (UA) (Negative) Urine Ketones (Negative) Urine Blood (Negative) Urine Nitrite (Negative) Urine Bilirubin (Negative) Urine Urobilinogen (Negative) Ur Leukocyte Esterase (Negative) 01/03/20 Range/Units 18:31 WBC (4.8-10.8) K/uL RBC (4.7-6.1) M/uL Hgb (14.0-18.0) g/dL Hct (42-52) % MCV (80-100) fL MCH (25-34) pg MCHC (32-36) g/dL RDW Std Deviation (36.4-46.3) fL RDW Coeff of Brayan (11.5-14.5) % Plt Count (130-400) K/uL MPV (7.4-10.4) fL Immature Gran % (Auto) % Neut % (Auto) % Lymph % (Auto) % [place] % (Auto) % Eos % (Auto) % Baso % (Auto) % Immature Gran # (Auto) (0.00-0.02) K/uL Neut # (Auto) (1.4-6.5) K/uL Lymph # (Auto) (1.2-3.4) K/uL [place] # (Auto) (0.11-0.59) K/uL Eos # (Auto) (0-0.5) K/uL Baso # (Auto) (0-0.2) K/uL Sodium (136-145) mmol/L Potassium (3.5-5.1) mmol/L Chloride (98-107) mmol/L Carbon Dioxide (21-32) mmol/L Anion Gap (3-11) BUN (7-18) mg/dl Creatinine (0.6-1.4) mg/dl Est Cr Clr Drug Dosing ml/min Est GFR ( Amer) Est GFR (Non-Af Amer) BUN/Creatinine Ratio (10-20) Glucose (70-99) mg/dl Calcium (8.5-10.1) mg/dl Magnesium (1.8-2.4) mg/dl Total Bilirubin (0.2-1) mg/dl Direct Bilirubin (0-0.2) mg/dl AST (15-37) U/L ALT (12-78) U/L Alkaline Phosphatase (45-117) U/L Total Protein (6.4-8.2) gm/dl Albumin (3.4-5.0) gm/dl Lipase (73-393) U/L Urine Color Yellow Urine Appearance Clear (Clear) Urine pH 5.5 (4.5-7.5) Ur Specific [place] > 1.045 H (1.000-1.030) Urine Protein Negative (Negative) Urine Glucose (UA) Negative (Negative) Urine Ketones Negative (Negative) Urine Blood Negative (Negative) Urine Nitrite Negative (Negative) Urine Bilirubin Negative (Negative) Urine Urobilinogen Negative (Negative) Ur Leukocyte Esterase Negative (Negative) Imaging Data Radiologist's Impression: Radiology results as stated below per my review and the radiologist's interpretation: CT abd pelvis IV con only FINDINGS: National Recruiter topogram: Unremarkable. Lung bases: Normal heart size. No pericardial or pleural effusion. Minimal dependent changes likely atelectasis. Liver: Normal morphology. Density suggestive of hepatic steatosis. No focal lesion. Patent hepatic vasculature. Biliary: No intrahepatic or extrahepatic biliary ductal dilatation. Gallbladder surgically absent. Trace infiltration of the gallbladder fossa likely expected postsurgical change. No fluid collection in the gallbladder fossa or elsewhere in the perihepatic regions. Pancreas: Trace peripancreatic fat stranding along the pancreatic tail and body. No peripancreatic fluid. Top normal prominence of the pancreatic duct. Underlying pancreas divisum not well appreciated. Spleen: Normal. Splenule noted. Adrenal glands: Normal. Kidneys and ureters: Normal. No hydronephrosis. Bladder: Normal. Pelvic organs: Prostate and seminal vesicles normal. Bowel: A few diverticula in the proximal sigmoid and descending colon without associated inflammatory change. A few diverticula in the right colon with inspissated material or prior contrast. No bowel obstruction. The appendix is normal. The appendix likely contains prior oral contrast. Peritoneal cavity: No free fluid or intraperitoneal gas. Lymph nodes: No enlarged lymph nodes in the abdomen or pelvis. Vasculature: Aorta and IVC patent and normal in caliber. Abdominal wall: Small fat-containing umbilical hernia. Musculoskeletal: Normal. IMPRESSION: 1. Postsurgical changes of cholecystectomy. 2. Mild peripancreatic inflammatory changes concerning for interstitial edematous pancreatitis. Correlate with lipase. This could relate to the recent ERCP in the setting of underlying risk factors such as pancreas divisum. No acute peripancreatic fluid collection. ACT 112: Negative or not required by law. Electronically signed by: Pramod Shetes M.D. 01/03/2020 6:05 PM Blood Pressure Blood Pressure Findings: Elevated blood pressure Blood Pressure Disposition: elevated BP felt to be situational MDM Narrative 1658: Per review of EMR, the patient has a history of recurrent pancreatitis. He had a lap eun done by Dr. Hinton on 12/30/19.The patient was evaluated in room C7. A complete history and physical exam was performed. 1820: Vital signs stable. Patient's lipase is elevated and CT shows acute pancreatitis. I spoke to Dr. Beckham - GastroenterologyAnna. She suggests admitting the patient to medicine and she will be in consult. [facility] hospitalist team was consulted and they stated to admit to the [facility] bargeman, Dr. Gastelum. 1926: Upon reevaluation, the patient is stable. I discussed the findings and the treatment plan with the patient. He expresses agreement and understanding. Dr. Hall [facility] was made aware of the patient. The patient will be evaluated for further management. Impression & Plan Pancreatitis Discharge Plan Visit Data *Final* Discharge Date/Time: 01/03/20 21:21 Chief Complaint: Abdominal Pain Stated Complaint: GALLBLADDER REMOVED DUE TO PANCREATITIS,PAINFUL ED Provider: Joss Moore Discharge Problem: Pancreatitis Patient Disposition: Admitted As Inpatient Discharge Instructions Interventions: ED Discharge Assessment Last Done: 01/03/20 21:21 Discharge Problem: Pancreatitis Qualifiers: Chronicity: acute Pancreatitis type: unspecified pancreatitis type Acute pancreatitis complication: unspecified Qualified Code(s): K85.90 - Acute pancreatitis without necrosis or infection, unspecified The scribe's documentation has been prepared under my direction and personally reviewed by me in its entirety. I confirm that the note above accurately reflects all work, treatment, procedures, and medical decision making performed by me.
[2020-01-03] MEDS: MoRPHine SULFATE 4 MG/ML 1 ML CARP\\VIAL IV PRN (22:17)
[2020-01-03] MEDS: LACTATED RINGER'S 1,000 ML IV SCH (22:17)
[2020-01-03] MEDS ORDERED: CALCIUM CARBONATE 500 MG CHEWABLE TAB PO PRN (22:24)
[2020-01-04] MEDS: LACTATED RINGER'S 1,000 ML IV SCH ×4 (02:31→17:46)
[2020-01-04] MEDS: MoRPHine SULFATE 4 MG/ML 1 ML CARP\\VIAL IV PRN ×4 (05:26→17:45)
[2020-01-04 06:20] LABS: Basophils # (auto) 0.03 K/uL (0-0.2); Basophils % (auto) 0.4 %; Eosinophils # (auto) 0.27 K/uL (0-0.5); Eosinophils % (auto) 3.3 %; Hematocrit (blood only) 39.6 % (42-52); Hemoglobin 13.6 g/dL (14.0-18.0); Immature Granulocytes # (auto) 0.02 K/uL (0.00-0.02); Immature Granulocytes % (auto) 0.2 %; Lymphocytes # (auto) 1.65 K/uL (1.2-3.4); Lymphocytes % (auto) 20.4 %; Mean Corpuscular Hemoglobin 30.6 pg (25-34); Mean Corpuscular Hgb Conc 34.3 g/dL (32-36); Mean Platelet Volume 11.3 fL (7.4-10.4); Monocytes # (auto) 0.94 K/uL (0.11-0.59); Monocytes % (auto) 11.6 %; Neutrophils # (auto) 5.16 K/uL (1.4-6.5); Neutrophils % (auto) 64.1 %; Platelet Count 211 K/uL (130-400); RDW Coefficient of Variation 13.3 % (11.5-14.5); RDW Standard Deviation 43.7 fL (36.4-46.3); Red Blood Count 4.45 M/uL (4.7-6.1); White Blood Count 8.07 K/uL (4.8-10.8)
[2020-01-04 06:54] LABS: Albumin Level 3.1 gm/dl (3.4-5.0); BUN Creatinine Ratio 13.2 (10-20); Calcium 8.6 mg/dl (8.5-10.1); Creatinine Clr Calc Pharmacy 147.5 ml/min; Est GFR (African American) 130.3; Est GFR (Non-African American) 112.4; Potassium 3.9 mmol/L (3.5-5.1)
[2020-01-04 07:01] LABS: Bilirubin,Total 0.8 mg/dl (0.2-1); Globulin 3.1 gm/dl (2.5-4.0); Total Protein 6.2 gm/dl (6.4-8.2)
--- NOTE | 2020-01-04 08:26 | Surgery Consultation ---
Date of Consultation January 04, 2020 Assessment & Plan (1) S/P laparoscopic cholecystectomy: 39y M here with recurrent pancreatitis, recently s/p lap cholecystectomy on 12/30/19 for findings of gallbladder sludge. Patient returned with epigastric abdominal pain, CT evidence concerning for pancreatitis and lipase 3061. Recommended if patient return he be evaluated by GI and and consider a secretin MRCP (please refer to Dr. Hinton's last progress note). Pending GI thoughts he may need to be evaluated at a tertiary center for this, regarding concern for pancreatic divisum. From a surgical standpoint patients wounds are clean, dry, and intact and healing well. Patient can reschedule his follow up with us in clinic upon discharge from the hospital. We will sign off for now, but please let us know if we can be of any further assistance during patient's hospitalization. History of Present Illness Attending Physician: Jann Ruiz MD History of Present Illness This is a 39y M who presented to the [facility] ED on 01/03/20 with abdominal pain, nausea, and night sweats. Of significance the patient was recently admitted on 12/27 with abdominal pain and findings concerning for pancreatitis. Surgery was consulted for findings of gallbladder sludge on imaging and we performed a laparoscopic cholecystectomy on 12/30/19. The patient was discharged the following day in stable condition. The patient states he was doing well Friday and Friday and was eating well without issues. Friday night patient said he started developing upper abdominal pain, nausea, and night sweats. The pain persisted through Friday and he arrived to the ED yesterday for evaluation. Patient states his symptoms are consistent with his past [address] a/p performed here revealed mild peripancreatic inflammation concerning for interstitial edematous pancreatitis. Lipase 3061. Surgery was consulted for post operative evaluation. Allergies Allergy/AdvReac Type Severity Reaction Status Date / Time Penicillins Allergy Unknown Unverified 01/03/20 17:02 Home Medications Home Medications Medication Instructions Recorded Confirmed Type No Known Home Medications 01/03/20 01/03/20 History Patient History Medical History Pancreatitis Surgical History Hx laparoscopic cholecystectomy (12/30/19) Laparoscopic Cholecystectomy with Intraoperative Cholangiogram Dr. Hinton 12/30/19 Family History Mother Hypertension Social History Preferred Language: Greenlandic Communication Ability: Effective Home Care Physical Therapist Required: No Beliefs That Will Affect Care: None Current Living Situation: Other Current Living Situation Comment: GIRL FRIEND Other Information That Helps Us Care for You: No Feels Safe at Home: Yes Safety Concerns: Feels Safe At This Time Smoking Status: Former smoker Tobacco Type: e-cigarettes ; Do You Dip or Chew Tobacco: No ; Second Hand Exposure: No ; Tobacco Cessation Education Requested by Patient: No Hx Alcohol Use: Yes (RARE) Alcohol type: beer and hard liquor Alcohol Intake Frequency: Rarely Hx Substance Use: No Review of Systems Constitutional: + sweats Gastrointestinal: + abdominal pain (upper abdomen) and + nausea; no vomiting Physical Exam Physical Exam: awake/alert Constitutional: no acute distress Respiratory: normal respiratory effort Gastrointestinal (Abdomen): Inspection/Auscultation: + abdominal surgical incision (surgical incisions c/d/i with steri-strips overtop); abdomen not distended Percussion/Palpation: + abdomen tender (mild ttp in epigastric region) and abdomen soft Results & Data Vital Signs (Past 12 Hours) Vital Signs Temp Pulse Pulse Resp BP BP Pulse Ox 01/04/20 08:05 36.8 C 71 16 111/73 96 01/03/20 21:35 36.6 C 85 16 138/93 99 01/03/20 21:21 80 18 130/[address] abd pelvis IV con only CLINICAL HISTORY: 39 years-old Male presenting with post operative pain. TECHNIQUE: Multidetector CT of the abdomen and pelvis was performed after the administration of intravenous contrast. IV contrast: 93 mL of Optiray 320. One or more dose lowering techniques were used consistent with the principles of ALARA (as low as reasonably achievable), including automatic exposure control, mA or kV adjustment to individual patient size, and/or use of iterative reconst ruction. COMPARISON: MRCP from 12/29/2019 and right upper quadrant ultrasound from 12/27/2019. CT DOSE (mGy.cm): The estimated cumulative dose is 1021.56 mGy.cm. FINDINGS: Circuit Breaker Mechanic topogram: Unremarkable. Lung bases: Normal heart size. No pericardial or pleural effusion. Minimal dependent changes likely atelectasis. Liver: Normal morphology. Density suggestive of hepatic steatosis. No focal lesion. Patent hepatic vasculature. Biliary: No intrahepatic or extrahepatic biliary ductal dilatation. Gallbladder surgically absent. Trace infiltration of the gallbladder fossa likely expected postsurgical change. No fluid collection in the gallbladder fossa or elsewhere in the perihepatic regions. Pancreas: Trace peripancreatic fat stranding along the pancreatic tail and body. No peripancreatic fluid. Top normal prominence of the pancreatic duct. Underlying pancreas divisum not well appreciated. Spleen: Normal. Splenule noted. Adrenal glands: Normal. Kidneys and ureters: Normal. No hydronephrosis. Bladder: Normal. Pelvic organs: Prostate and seminal vesicles normal. Bowel: A few diverticula in the proximal sigmoid and descending colon without associated inflammatory change. A few diverticula in the right colon with inspissated material or prior contrast. No bowel obstruction. The appendix is normal. The appendix likely contains prior oral contrast. Peritoneal cavity: No free fluid or intraperitoneal gas. Lymph nodes: No enlarged lymph nodes in the abdomen or pelvis. Vasculature: Aorta and IVC patent and normal in caliber. Abdominal wall: Small fat-containing umbilical hernia. Musculoskeletal: Normal. IMPRESSION: 1. Postsurgical changes of cholecystectomy. 2. Mild peripancreatic inflammatory changes concerning for interstitial edematous pancreatitis. Correlate with lipase. This could relate to the recent ERCP in the setting of underlying risk factors such as pancreas divisum. No acute peripancreatic fluid collection. ACT 112: Negative or not required by law. Electronically signed by: Pramod Sheets M.D. 01/03/2020 6:05 PM PG Care Time/CCT Total # of Minutes Spent Total Time Spent with Patient: Total time spent is greater than 50% in coordination of care (as documented) at patient's floor/unit and/or counseling patient: Coding Level of Care Code None Diagnoses S/P laparoscopic cholecystectomy Z90.49
[2020-01-04] MEDS ORDERED: ENOXAPARIN INJ 40 MG/0.4 ML SYR SQ SCH (09:00)
--- NOTE | 2020-01-04 10:23 | Gastrointestinal Consultation ---
Date of Consultation January 04, 2020 Assessment & Plan (1) Recurrent pancreatitis: Recent EUS with Dr. Bojorquez of [facility] questions autoimmune pancreatitis, however patient had no improvement with steroids. He has returned to the hospital on multiple occasions with pancreatitis. MRCP was unremarkable for acute issue during his last admission, though pancreatic divisum was suggested. He underwent a lap eun with IOC (questioned possible common bile duct distal stenosis) during his last admission and has returned <[address] evidence of pancreatitis, elevated lipase, & epigastric pain. At this venture, we would recommend transfer to a tertiary center for further evaluation. For continuity of care purposes, [facility] would be ideal. Thank you for allowing us to participate in the care of this patient. If you should have any further questions or concerns, do not hesitate to contact us at extension [phone] or [phone]. Supervising Physician Co-Signing Physician Notes Agree with REINALDO Martinez Abd: Soft, Tender, ND, +BS Continue supportive care Will be transferred to tertiary center for further workup History of Present Illness Reason for Consultation: Pancreatitis Attending Physician: Jann Ruiz MD History of Present Illness Patient is 39 yo male with multiple admissions between [facility] & [facility] for pancreatitis. He has no history of pancreatitis prior to November 2019. He was admitted to [facility] and his work-up was unremarkable. He denies alcohol use, triglycerides were within normal limits, & gallbladder work-up was unremarkable at that time per review of [facility] records. He reports that he was discharged, but due to persistent symptoms, he returned last to [facility] ED. He was evaluated by [facility] at some point during these hospitalizations. He underwent an EGD/EUS. 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 While he had a negative ROBBI & IgG4 subclasses, he was placed on a steroid taper and advised to have an MRCP in 3 months. He notes this improved his symptoms at first. He notes that when he began advancing his diet, his symptoms worsened. He returned last week to [facility] for another opinion. MRCP was unremarkable. He did have sludge noted on imaging of his gallbladder and underwent a lap eun per general surgery. IOC did not indicate any stones, but the CBD was questionably stenotic distally. He was discharged with improvement in his lipase & symptoms. He reports that on 01/02/2020, he had advanced his diet somewhat and then developed worsening abdominal pain that prompted him to return to [facility]. He had a CT this admission that indicated interstitial edematous pancreatitis. Lipase is 3601. LFTs are unremarkable. Patient reports persistent epigastric pain. He denies fever or chills. He does report reflux since his cholecystectomy. Allergies Allergy/AdvReac Type Severity Reaction Status Date / Time Penicillins Allergy Unknown Unverified 01/03/20 17:02 Home Medications Home Medications Medication Instructions Recorded Confirmed Type No Known Home Medications 01/03/20 01/03/20 History Patient History Medical History Pancreatitis Surgical History Hx laparoscopic cholecystectomy (12/30/19) Laparoscopic Cholecystectomy with Intraoperative Cholangiogram Dr. Hinton 12/30/19 Family History Mother Hypertension Social History Preferred Language: Uzbek Communication Ability: Effective Clinical Dietetic Technician Required: No Beliefs That Will Affect Care: None marital status: Single Current Living Situation: Other Current Living Situation Comment: GIRL FRIEND Other Information That Helps Us Care for You: No Feels Safe at Home: Yes Safety Concerns: Feels Safe At This Time Smoking Status: Former smoker Tobacco Type: e-cigarettes ; Do You Dip or Chew Tobacco: No ; Second Hand Exposure: No ; Tobacco Cessation Education Requested by Patient: No Hx Alcohol Use: Yes (RARE) Alcohol type: beer and hard liquor Alcohol Intake Frequency: Rarely Hx Substance Use: No Review of Systems Constitutional: no fever and no chills Eyes: no acute issues Ear, Nose, Mouth, Throat: no acute issues Respiratory: no cough and no dyspnea Cardiovascular: no chest pain Gastrointestinal: + abdominal pain and + heartburn; no bloating, no nausea, no change in bowel habits and no blood in stools Musculoskeletal: no acute issues Integumentary: no rash Neurologic: no acute issues Psychiatric: no acute issues Endocrine: no fatigue Physical Exam Constitutional: WD/WN, vitals as above Eyes: PERRL, conjunctivae normal, anicteric sclerae ENMT: external ear and nose normal, oropharynx normal Neck: normal visual inspection Respiratory: normal respiratory effort Cardiovascular: Rate/Rhythm: regular rate Gastrointestinal (Abdomen): Percussion/Palpation: + abdomen tender (epigastric) Skin: no rashes Psychiatric: Orientation: alert and oriented x 3 Results & Data ([facility]) Vital Signs (Past 12 Hours) Vital Signs Temp Pulse Resp BP Pulse Ox 01/04/20 08:05 36.8 C 71 16 111/73 96 PG Care Time/CCT Total # of Minutes Spent Total Time Spent with Patient: Total time spent is greater than 50% in coordination of care (as documented) at patient's floor/unit and/or counseling patient: Coding Level of Care Code 78877 Inpt Consult Level 4 Diagnoses Recurrent pancreatitis K85.90
--- NOTE | 2020-01-04 16:03 | Discharge Summary ---
Date of Service January 04, 2020 Admission HPI Per Admitting Provider History obtained from patient and records. Medical history significant for recurrent pancreatitis, history pancreatic divisum, asthma, past tobacco abuse. Recent confinement at [facility] last week for recurrent pancreatitis (preceded by [address] [facility] last month for possible autoimmune pancreatitis sp steroid Rx). MRCP showed pancreatic divisum. [facility] service recommended outpatient evaluation by a hepatobiliary specialist at tertiary center. Surgery recommended second and MRCP to visualize pancreatic divisum if with recurrent bouts of pancreatitis. Patient underwent laparoscopic cholecystectomy during confinement. Last night patient had recurrence of achy epigastric discomfort similar to pancreatitis attack with nausea, no emesis. No fever, no chills. Tried to be compliant with low-fat diet recommendations post discharge. Admits to some bagel intake. Denies recent alcohol intake. Patient consulted ER for worsening symptoms. 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, store employee Admission Exam Per Admitting Provider GENERAL: Comfortable, pleasant, obese, no respiratory distress SKIN: Normal color, warm HEENT: Alopecia, pink palpebral conjunctivae, no ptosis, dry buccal mucosa NECK : Supple, short neck, no tenderness CHEST : CTA, no tenderness HEART : RRR, no obvious murmurs ABDOMEN: Some distention, epigastric tenderness EXTREMITIES : No LE swelling/tenderness, no other conspicuous deformities noted NEUROLOGIC : Coherent, no facial asymmetry, no other gross focality Principal Diagnosis Recurrent pancreatitis S/p laparoscopic cholecystectomy (12/30/2019) Discharge Exam Physical Exam: Young male lying in bed, somewhat uncomfortable d/t pain Constitutional: well developed, well nourished, obese Eyes: PERRL, EOMI, conjunctivae normal, anicteric sclerae ENMT: external ear and nose normal, oropharynx normal Neck: normal visual inspection Respiratory: normal respiratory effort, lungs clear to auscultation, no crackles, wheezing, rhonchi Cardiovascular: RRR, no murmur, no edema Gastrointestinal (Abdomen): Inspection/Auscultation: abdomen normal to inspection and normal bowel sounds Percussion/Palpation: + abdomen tender (in the epigastrium and upper quadrants L>R), abdomen soft; not rigid, +obese, small incisions post surgery, no significant erythema, edema or drainage Musculoskeletal: No acute arthritis involving any joint, moves all 4 extrem ities spontaneously Skin: no rashes, warm and dry Psychiatric: A+Ox3, euthymic affect Discharge Data Allergies Allergy/AdvReac Type Severity Reaction Status Date / Time Penicillins Allergy Unknown Unverified 01/03/20 17:02 Consultations 01/03/20 18:24 ED Decision to Admit Stat 01/03/20 21:52 Consult Gastroenterology Routine Consult General Surgery Routine 01/04/20 15:11 Burn CD for patient Routine Previous studies from last admission 12/27/19 18:59 US liver Routine IMPRESSION: 1. Pancreas is mostly obscured by bowel gas. The visualized portions appear unremarkable. 2. Trace, bladder sludge without cholelithiasis or sonographic evidence of acute cholecystitis. 3. No biliary ductal dilation. 4. Mildly increased echogenicity of the liver may reflect hepatic steatosis. 12/29/19 00:14 MR MRCP Routine IMPRESSION: 1. No evidence of ductal dilatation 2. No calculi identified 3. Equivocal pancreatic divisum 12/30/19 08:20 [place] cholangiogram OR Routine IMPRESSION: The patient is status post cholecystectomy. No filling defects within the bile ducts. Ordered Studies 01/03/20 16:57 CT abd pelvis IV con only Stat IMPRESSION: 1. Postsurgical changes of cholecystectomy. 2. Mild peripancreatic inflammatory changes concerning for interstitial edematous pancreatitis. Correlate with lipase. This could relate to the recent ERCP in the setting of underlying risk factors such as pancreas divisum. No acute peripancreatic fluid collection. Hospital Course (1) Pancreatitis: -Previous recent admissions to [facility] for pancreatitis (11/25 - 11/27 and 12/06 - 12/10) and [facility] (12/27- 12/31/2019) -No history of heavy alcohol use, prior work-up negative for choledocholithiasis, triglycerides WNL; was felt to be autoimmune pancreatitis and patient was started on steroids with improvement in symptoms however ROBBI and IgG4 subclasses all WNL and patient was instructed to start tapering steroids on 12/23 -EGD and EUS on 12/09 ([address] Bojorquez/ [facility]) showed esophageal polyp (pathology showing benign squamous mucosa) and signs of fatty liver -RUQ ultrasound (December 27) - trace, biliary sludge without cholelithiasis or sonographic evidence of acute cholecystitis. No biliary ductal dilation. Mildly increased echogenicity of the liver may reflect hepatic steatosis. -GI consult (patient requesting [facility] for second opinion) -if MRCP negative, recommend to consult general surgery given recurrent pancreatitis, and biliary sludge on ultrasound. Otherwise would recommend further evaluation at tertiary care center -Lipid profile and triglyceride remained unremarkable -MRCP (12/29/2019) -no evidence of ductal dilatation, no calculi identified, equivocal pancreatic divisum. -General surgery consulted, after discussing with GI, given recurrent pancreatitis and findings of biliary sludge on ultrasound, decided to proceed with cholecystectomy, patient in agreement -Pt underwent lap cholecystectomy (12/30/2019), tolerated procedure well, had only mild RUQ and epigastric pain, tolerated a low-fat diet, interested in going home day after surgery -Plan was to follow-up with general surgery in 1 week - Pt now (01/03/2020) presents back to [facility] with epigastric and upper abd.quadrants pain, lipase elevated at ~3000, and CT findings c/w pancreatitis - IVF and pain control initiated - GI and gen. surgery services both consulted, recommend transfer to tertiary care center for further evaluation and treatment, possible sphincterotomy given findings of pancreatic divisum, surgery also recommends to consider a secretin MRCP - Case discussed with Dr. Garcia, hospitalist at [facility] who accepted the pt for transfer. Total Time Total Time Spent Total Time Spent (In Minutes): 40 Total Time Includes: Examination of the Patient, Discharge Planning, Medication Reconciliation and Communication With Other Providers Discharge Plan Discharge Items Patient Disposition: Transfer Acute Care Hospital Reason For Visit: PANCREATITIS Discharge Diagnosis: Recurrent pancreatitis S/p laparoscopic cholecystectomy (12/30/2019) Activity: As commented below Non-emergency contact: Surgeon and Sound Effects Supervisor Call non-emergency contact if: you have any medication questions and your symptoms worsen Follow-up/Referrals: Alexey Hinton MD [Surgeon] - (Please call to schedule follow up in clinic within 1 week) Kiko Celaya MD [Primary Care Provider] - Diet: Low Fat Addtl Attending Provider Instructions: Pt admitted with recurrent pancreatitis (4th admission for pancreatitis since November). Pt underwent laparoscopic cholecystectomy on 12/30/2019, during the last hospitalization. He was evaluated by GI and gen. surgery at that time. MRCP was also obtained, significant for pancreatic divisum. It was recommended by GI to transfer pt to tertiary care center for further evaluation and treatment by GI/hepatobiliary specialist. Pt may need possible sphincterectomy. Pt was accepted by Dr. Garcia, hospitalist at [facility]. Pending Studies at Discharge: No Stand-Alone Forms: My [facility] [place] [employer] Skilled Items Patient informed of condition?: Yes DNR: No Discharge Level of Care: Other Communicable Disease: No Discharge Prognosis: Other Lines: Peripheral IV Urinary Catheter: No Medications and DC Order Prescriptions: No Action No Known Home Medications RF: 0 Discharge Orders: Discharge Order (Routine); Ordered 01/04/20 Ordered By: Jann Ruiz Admission Data Admit Date/Time: 01/03/20 20:21 Attending Provider: Jann Ruiz Admit Provider: Jesse Hall Primary Care Provider: Kiko Celaya I. Other Providers: Jesse Hall ; Alexey Hinton ; Pedro Noble
[2020-01-04] MEDS ORDERED: FAMOTIDINE 20 MG in SYRINGE 3 ML IV SCH (21:00)
== END 2020-01-04 20:45 | disposition short-term general hospital (02) | DRG 439 ==
LOC: ED 15:12 → 3W 20:21